=== PATIENT | female | born 1945 | race Caucasian/White ===

== ENCOUNTER → 2018-06-17 18:31 | Outpatient (REF) | payer OTHER, MEDICARE, SELFPAY | LOC: LBN 18:31 | PROVIDERS: PCP Internal Medicine; Visit Provider Nurse Practitioner | DX: R30.0 Dysuria (principal) | CPT/HCPCS: 87077; 87086; 87186 ==

== ENCOUNTER 2018-06-25 00:10 | Outpatient (CLI) | payer OTHER, MEDICARE, SELFPAY ==
--- NOTE | 2018-06-25 10:38 | DI.MAMMO_ITS ---
SYMPTOMS/DIAGNOSIS: SCREENING, Z12.31 MAMMOGRAM: The breasts are of moderate density with fairly symmetrical distribution of fibroglandular tissue. No dominant mass or clumped microcalcification is identified in either breast. The current examination is compared with previous examinations including May 2016 and there has been no gross interval change in appearance in comparison with the previous studies. Note is again made of biopsy clip in the upper outer quadrant of the left breast. CONCLUSION: No specific evidence of malignancy at this time. Routine screening examinations are suggested at yearly intervals in this age group according to the ACS/ACR guidelines. Category I. Breast density Category B. MQSA ASSESSMENT OF FINDINGS: Negative. Category 1. Patient will receive a letter notifying them of these results. BI-RADS category B. There are scattered areas of fibroglandular density.
== END 2018-06-25 00:30 ==
PROVIDERS: PCP Internal Medicine; Visit Provider Internal Medicine
DX: Z12.31 Encounter for screening mammogram for malignant neoplasm of breast (principal)
CPT/HCPCS: 77063; 77067

== ENCOUNTER 2018-08-30 09:43 | Outpatient (CLI) | payer OTHER, MEDICARE, SELFPAY ==
[2018-08-30 11:35] LABS: Anion Gap 7.3 mmol/L (3-11); BUN 23 mg/dL (7-18); CO2 31.7 mmol/L (21.0-32.0); CREATININE 1.52 mg/dL (0.55-1.02); Calcium 9.1 mg/dL (8.5-10.1); Chloride 103 mmol/L (98-107); Cholesterol 207 mg/dL (50-200); Estimated GFR 33.52 (mL/min/1.73m2); Glucose 130 mg/dL (70-100); HDL Cholesterol 57 mg/dL (40-60); LDL CHOLESTEROL 132 mg/dL (<100); Potassium 4.4 mmol/L (3.5-5.1); Sodium 142 mmol/L (136-145); TSH 1.65 uIU/mL (0.358-3.74); Triglyceride 129 mg/dL (30-150)
== END 2018-08-30 10:03 ==
PROVIDERS: PCP Internal Medicine; Visit Provider Internal Medicine
DX: E03.9 Hypothyroidism, unspecified (principal); N25.9 Disorder resulting from impaired renal tubular function, unspecified; I10 Essential (primary) hypertension
CPT/HCPCS: 36415; 80048; 80061; 83721; 84443

== ENCOUNTER 2018-10-09 14:50 | Outpatient (CLI) | payer OTHER, MEDICARE, SELFPAY ==
--- NOTE | 2018-10-09 14:30 | DI.RAD_ITS ---
SYMPTOMS/DIAGNOSIS: PAIN RIGHT HIP AND PELVIS: The bony structures are normally mineralized. The hip joint is well maintained with minimal periarticular spurring. There is no evidence of a fracture or dislocation. The pelvic bones appear intact and in the frontal plane, a left hip prosthesis is demonstrated and appears unchanged in position when compared with previous images of 09/05/2016 with no evidence of a superimposed fracture or dislocation. Note is made of degenerative changes involving the lower lumbar spine where elbert and pedicle screw devices are noted and there is evidence of an L4-5, L5-S1 fusion. SUMMARY: No significant abnormality involving the right hip is apparent.
== END 2018-10-09 15:10 ==
PROVIDERS: PCP Internal Medicine; Visit Provider Internal Medicine
DX: M25.551 Pain in right hip (principal); Z96.642 Presence of left artificial hip joint
CPT/HCPCS: 73502

== ENCOUNTER → 2018-10-28 11:23 | Outpatient (BNVA) | payer MEDICARE, OTHER, SELFPAY | PROVIDERS: PCP Internal Medicine; Referring Provider Internal Medicine; Visit Provider Orthopaedic Surgery | DX: M25.551 Pain in right hip (principal) | CPT/HCPCS: 99213; 99241 ==

== ENCOUNTER 2018-12-24 11:29 | Outpatient (CLI) | payer MEDICARE, OTHER, SELFPAY ==
--- NOTE | 2018-12-24 06:00 | DI.RAD_ITS ---
SYMPTOM/DIAGNOSIS: LUMBAR RADICULOPATHY, TRANSFORAMINAL EPIDURAL STEROID INJECTION C-ARM: Fluoroscopy Time: 46.6 seconds 19.20mGy Fluoroscopy was provided for guidance with lumbar spine pain clinic injection. Please see procedure note for details.
[2018-12-24 11:40] VITALS: BP 115/75; PULSE 63; RESP 18; TEMP 37.1; O2SAT 97
--- NOTE | 2018-12-24 12:11 | PDOC.PAIN ---
Pain Clinic Procedure Note Current Active Problems Problem Status Onset Lumbar radiculitis Acute LUMBAR / SACRAL TRANSFORAMINAL INJECTION ITALO GRANGER has been referred [facility] for a transforaminal nerve root block and steroid injection. COMMENTS: Previously evaluated in the clinic and had an MRI of the lumbar spine. Her symptoms are consistent with a right L1 radiculopathy. Patient was interviewed and the medical record reviewed. There were no medical, pharmacologic, radiographic or other structural contraindications to attempting fluoroscopically guided transforaminal nerve root block and epidural steroid injection. Risks and expected side effects as well as potential benefit of the procedure were reviewed and voiced concerns addressed. The printed consent form was signed and witnessed. Standard time-out procedure was performed. Patient was placed in the prone position on the fluoroscopy table and automated blood pressure cuff and pulse oximeter applied. Fluoroscopy was utilized to identify the right L1 neural foramen between L1 and L2. A skin sandhya was made for the needle insertion site. A Chlorhexadine prep was carried out, and sterile drapes were applied. Local anesthesia was achieved in the skin and subcutaneous tissues. A 22 gauge curved tip spinal needle was then inserted, advanced with fluoroscopic guidance into the neural foramen, confirmed on the lateral view. After negative aspiration, 2 ml of Omnipaque 240 was injected confirming position in A/P and lateral views. This showed a good spread of dye transforaminally into the epidural space. There was no vascular update with contrast injection under continuous fluoroscopy and digital substraction. 15 mg of Dexamethasone was injected, followed by 0.5 ml of 1% Xylocaine flush for the nerve root block, as well. There was no unusual discomfort expressed.The needle was withdrawn. The patient tolerated the procedure well. A Band-Aid was applied. Vital signs were stable throughout the procedure and were as recorded in nursing records. If given, dosages of intravenous drugs for anxiolysis and analgesia were documented in nursing records. Follow up plans and appointments were discussed. Post procedure instruction was given as documented in nursing records and patient was discharged in the care of an identified special events driver. COMMENTS: This procedure can be completed up to 3 times per 12 months if it is effective. CC: Roberta Lyons MD
[2018-12-24 12:20] VITALS: PULSE 64; RESP 18; O2SAT 99
[2018-12-24] MEDS: Omnipaque 240 MG/ML 50 ML BTL IJ (12:21)
[2018-12-24] MEDS: Dexamethasone Sod. Phos./Pres-Free 10 MG/ML VIAL IJ (12:21)
== END 2018-12-24 11:49 ==
PROVIDERS: PCP Internal Medicine; Visit Provider Preventive Medicine Occupational Medicine
DX: M54.16 Radiculopathy, lumbar region (principal)
CPT/HCPCS: 64483; 72100; Q9967

== ENCOUNTER → 2018-12-27 08:51 | Outpatient (BNVA) | payer MEDICARE, OTHER, SELFPAY | PROVIDERS: PCP Internal Medicine; Referring Provider Internal Medicine; Visit Provider Student in an Organized Health Care Education/Training Program | DX: M25.551 Pain in right hip (principal); Z96.642 Presence of left artificial hip joint | CPT/HCPCS: 99203; 99214 ==

== ENCOUNTER 2019-01-02 01:19 | Outpatient (CLI) | payer MEDICARE, OTHER, SELFPAY ==
--- NOTE | 2019-01-02 07:00 | DI.RAD_ITS ---
SYMPTOM/DIAGNOSIS: RT HIP INJECTION, RT HIP PAIN, M25.551 RIGHT HIP INJECTION: Fluoroscopy Time: 9.8 seconds Fluoroscopy was utilized by Dr. Gold during the performance of a right hip injection. Please refer to the procedure report for complete details.
--- NOTE | 2019-01-02 10:03 | W.PROCNOTE ---
Date of service: 01/02/19 Time of Service: 10:03 Procedure Note Date of procedure: 01/02/19 Procedure: Right Hip Injection with Fluoroscopic Guidance Surgeon/Proceduralist/Physician: Rinku Gold Procedure Diagnosis: Right Hip Osteoarthritis Procedure Indications: Alejandra has had persistent pain of the RIGHT hip and groin. Noninvasive measures have been tried. To serve as both diagnostic and therapeutic, an injection under fluoroscopy was recommended. I had discussed the risks of the procedure and the patient elected to proceed. Procedure Description: Alejandra was greeted in the flouroscopy room. The correct side was identified and the consent was reviewed with the patient and signed. The patient was then placed in the supine position on the fluoroscopy table. The RIGHT hip was then prepped with Chloraprep. The anterolateral injection starting point was identiifed by bony landmarks and fluoroscopy. The skin and soft tissue in the tract of the injection was anesthetized with 1% Lidocaine. A spinal needle was then inserted deep into the hip joint at the level of the lateral femoral neck under fluoroscopic guidance. A small amount of Omnipaque solution was injected to confirm intraarticular placement. Once confirmed, the hip was injected with 6cc of 0.5% Bupivicaine and 80mg of Depo-Medrol. A bandaid was placed on the injection site. The patient tolerated the procedure well and noted improvement in pre-injection pain.
[2019-01-02] MEDS: Omnipaque 300 MG/ML 10 ML BTL IJ (11:28)
[2019-01-02] MEDS: Bupivacaine 0.5% Pres-Free 10 ML VIAL 6 ML IJ (11:29)
[2019-01-02] MEDS: methylPREDNISolone ACETATE 80 MG/ML VIAL IM (12:04)
== END 2019-01-02 01:39 ==
PROVIDERS: PCP Internal Medicine; Visit Provider Student in an Organized Health Care Education/Training Program
DX: M25.551 Pain in right hip (principal); M16.11 Unilateral primary osteoarthritis, right hip
CPT/HCPCS: 20610; 77002; J1040

== ENCOUNTER 2019-01-15 11:16 | Outpatient (CLI) | payer MEDICARE, OTHER, SELFPAY ==
--- NOTE | 2019-01-15 11:11 | DI.RAD_ITS ---
SYMPTOMS/DIAGNOSIS: RAZA PLANNING RIGHT HIP: Comparison is made with [id number]. There is now narrowing of the right hip joint space, worsening when compared with the previous exam. There is mild acetabular spurring. Mild spurring is seen the SI joint. IMPRESSION: Moderate degenerative changes of the right hip.
== END 2019-01-15 11:36 ==
PROVIDERS: PCP Internal Medicine; Referring Provider Internal Medicine; Visit Provider Student in an Organized Health Care Education/Training Program
DX: M25.551 Pain in right hip (principal); M16.11 Unilateral primary osteoarthritis, right hip; Z98.890 Other specified postprocedural states
CPT/HCPCS: 99213; 99214; 73501

== ENCOUNTER 2019-01-31 08:53 | Outpatient (CLI) | payer MEDICARE, OTHER, SELFPAY ==
[2019-01-31 10:31] LABS: HCT 40.9 % (36.0-46.0); HGB 13.6 g/dL (12.0-15.5); Mean Corp. HGB Concentration 33.3 g/dL (32.0-36.0); Mean Corpuscular Hemoglobin 31.1 pg (27.0-33.0); Mean Corpuscular Volume 93.4 fL (80-95); Mean Platelet Volume 9.6 fL (8.0-11.0); Platelet Count 241 x1000/uL (130-400); RBC 4.38 m/cumm (4.00-5.20); RBC Distribution Width 13.7 % (11.7-14.6); White Blood Cell Count 6.75 k/cumm (4.4-10.8)
[2019-01-31 11:18] LABS: Anion Gap 6.7 mmol/L (3-11); BUN 18 mg/dL (7-18); CO2 31.3 mmol/L (21.0-32.0); CREATININE 1.26 mg/dL (0.55-1.02); Calcium 9.6 mg/dL (8.5-10.1); Chloride 103 mmol/L (98-107); Cholesterol 149 mg/dL (50-200); Estimated GFR 41.51 (mL/min/1.73m2); Glucose 147 mg/dL (70-100); HDL Cholesterol 69 mg/dL (40-60); LDL CHOLESTEROL 60 mg/dL (<100); Potassium 4.7 mmol/L (3.5-5.1); Sodium 141 mmol/L (136-145); TSH 1.75 uIU/mL (0.358-3.74); Triglyceride 77 mg/dL (30-150)
== END 2019-01-31 09:13 ==
PROVIDERS: PCP Internal Medicine; Visit Provider Student in an Organized Health Care Education/Training Program
DX: M25.551 Pain in right hip (principal); M16.0 Bilateral primary osteoarthritis of hip; E03.9 Hypothyroidism, unspecified; R73.01 Impaired fasting glucose; E11.9 Type 2 diabetes mellitus without complications; Z01.818 Encounter for other preprocedural examination
CPT/HCPCS: 36415; 80048; 80061; 83721; 85027; 86850; 86900; 86901; 84443

== ENCOUNTER 2019-02-06 05:55 | Inpatient (IN) | payer MEDICARE, OTHER, SELFPAY ==
[2019-02-06] VITALS (18 sets, daily range): BP systolic 87–126; BP diastolic 43–95; PULSE 68–81; RESP 10–20; TEMP 35.6–36.8; O2SAT 94–98
[2019-02-06] MEDS: Celecoxib 200 MG CAP 400 MG PO (06:47)
[2019-02-06] MEDS: Acetaminophen 500 MG TAB 1000 MG PO (06:47)
[2019-02-06] MEDS: Lactated Ringers 1,000 ML 80 ML IV ×3 (06:48→13:04)
[2019-02-06] MEDS: oxyCODONE-CR 10 MG TABCR PO (06:48)
[2019-02-06] MEDS: ceFAZolin 2 GM/50 ML BAG IVPB (07:45)
[2019-02-06] MEDS: Bupivacaine 0.25% Pres-Free 30 ML VIAL (10:24)
[2019-02-06] MEDS: Ketorolac 30 MG/ML VIAL (10:24)
[2019-02-06] MEDS: Normal Saline 50 ML (10:24)
--- NOTE | 2019-02-06 10:25 | DI.RAD_ITS ---
SYMPTOM/DIAGNOSIS: DJD RT HIP, TOTAL RT HIP C-ARM RIGHT HIP IN OR: Fluoroscopy Time: 50.3 seconds C-arm fluoroscopy was utilized by Dr. Gold during placement of right hip prosthesis. Hard copy shows acetabular and femoral components in place with a cerclage wire around the proximal femoral metaphysis.
--- NOTE | 2019-02-06 11:38 | DI.RAD_ITS ---
SYMPTOMS/DIAGNOSIS: S/P RT RAZA WITH INTRAOP FRX AP PELVIS: AP view of the pelvis was obtained and shows previously noted total left hip joint replacement in position with a right hip joint replacement now also in position as well. There are bilateral proximal femoral cerclage wires.
[2019-02-06] MEDS: Lactated Ringers 1,000 ML 75 ML IV (12:18)
[2019-02-06] MEDS: Normal Saline Flush 10 ML SYR IV (14:56)
--- NOTE | 2019-02-06 15:47 | IN_ITS ---
Date of service: 02/06/19 Time of Service: 13:40 PT Notes Inpatient Physical Therapy Evaluation Date: 02/06/19 Referring Doctor: Dr. Gold PT Orders: PT CONSULT: s/p right anterior RAZA Precautions: fall, standard, WBAT Patient Profile/Admitting Diagnosis: Patient admitted s/p right anterior RAZA performed earlier today. PMHX: H/O radioactive iodine thyroid ablation (Acute) S/P laminectomy (Acute ~2006) S/P tonsillectomy and adenoidectomy (Acute) S/P total abdominal hysterectomy and bilateral salpingo-oophorectomy (Acute) Status post Eboni fundoplication (Acute) Status post carpal tunnel release of both wrists (Acute) Status post right rotator cuff repair (Acute ~1993) History of appendectomy (Chronic) History of cataract surgery (Chronic) History of cholecystectomy (Chronic) History of knee replacement (Chronic) Aborted Manohar-en-Y Bypass (03/11/15) Colonoscopy - IV Sedation (~06/2014) Lap Take down Eboni (03/11/15) Lysis of adhesions (03/11/15) Paraesophagel Hernia repair (03/11/15) Posterior crura-plasty, gastropexy, intra-op EGD (03/11/15) Total replacement of hip (~2010) liposuction (~2016) panniculectomy (~2016) Social History/Home Situation: Patient lives with her supportive in a split level home. They have 7 outdoor steps (no rail) and 5 indoor steps with single rail to reach the main level of the home. Equipment Owned/DME: [employer]YA[employer], scott Subjective: Patient states that she is feeling great. She has some medial knee pain, which has been bothering her for several weeks. She states that her hip feels great and she's anxious to start walking. Objective: General Observation: Resting in bed with IV in LUE, Abreu catheter in place. Mental Status: A and O x3 Pain: 1/10, medial aspect of right knee Vital Signs: BP 114/73 at rest ROM: Right Upper Extremity: WFL Left Upper Extremity: WFL Right Lower Extremity: Hip range of motion not assessed due to acute postoperative status. Right knee range of motion allows 0 degrees extension to at least 100 degrees of flexion Left Lower Extremity: WFL Strength: Right Upper Extremity: WFL Left Upper Extremity: WFL Right Lower Extremity: Functionally, patient is able to perform active heel slides, long arc quads, and demonstrate good quadriceps activation with quad sets. No resisted strength assessment was performed due to acute postoperative status. Ankle dorsiflexion at least 3/5. Left Lower Extremity: Hip flexion 4+/5. Quads 5/5. Ankle dorsiflexion 5/5 Sensation: Intact distally Bed Mobility/Transfers: Supine?sit: Supervision Sit?supine: Supervision Sit?stand: Supervision Stand?sit: Supervision with max cues for hand placement and technique Gait: During first attempt ambulation, patient takes 2 steps only, with weightbearing as tolerated, upper extremity support to FW W, and mod assist of 1. On second step her right lower extremity tera, and she reports sharp pain in her right knee. She was assisted to chair, where she reports complete resolution of right knee pain. She remains sitting up to chair for 60 minutes, after which she performed a second round of ambulation. At that point she is able to ambulate 30 feet x1, with cues for increased reliance on upper extremity support to wheeled walker and reduce weightbearing to right lower extremity (approximately 50% weightbearing), and CG x2. Patient is able to ambulate with 0/10 pain, step through gait pattern, and no further episodes of buckling. She requires max cues for pacing and technique. Balance: Static Sitting: Normal Dynamic Sitting: Good Static Standing: Good Dynamic Standing: Fair Special Tests: Mobility Limitations Standardized Measure [facility] AM-PAC 6 clicks Basic Mobility Inpatient Short Form: Raw Score: 18 CMS Score: 47% deficit Informed Consent/Education: Patient instructed in purpose of PT consult and plan of care. She was instructed in gait and transfer training, with patient requiring significant cues for slowing pace. She was instructed in an early exercise program, as noted on flowsheet. Assessment: Patient is a 73 year old female referred to physical therapy services with the diagnosis of right hip OA, postop day 0 from right anterior RAZA. Patient presents with clinical signs and symptoms consistent with acute postoperative status, as demonstrated by the following impairment level findings: 1. Decreased right lower extremity strength 2. Gait impairments Impairments are contributing to the following functional limitations: 1. Unable to tolerate household distance ambulation 2. Unable to manage stairs 3. Patient requiring cues for safety and technique for all transfers and mobility Patient is assessed as Moderate [id number] complexity based on the following: History: 73-year-old female, postop day 0 from right anterior RAZA. Patient has an extensive PMH, including multiple musculoskeletal issues. She is anxious to return home as quickly as possible, although demonstrated safety concerns with transfers and ambulation during evaluation today. Examination: Functional limitations as noted above Presentation: Evolving Decision Making: Moderate complexity Goals: Goals X1 week 1. Supine-Sit: Supervision 2. Sit-Supine : Supervision 3. Sit-Stand : Supervision 4. Stand-Sit : Supervision 5. Bed-Chair : Supervision with FW W 6. Chair-Bed: Supervision with FWW 7. Gait : supervision with FWW x 50' 8. Stairs : Supervision with single rail x 5 9. Independent with home exercise program Plan of Care/Treatment Plan: 1-2x/day, 7 days/week x 1 week. Plan of care has been reviewed with the [employer]INEER providing the service under Physical Therapy direction. Initiate Physical Therapy intervention for strengthening, bed mobility, transfers, gait, stairs, balance training, use of assistive device. DISCHARGE RECOMMENDATIONS: home with no anticipated equipment needs TREATMENT CODE/TIME: 98978, [id number] (1:40 PM to 2:10 PM; 3:15 PM to 3:35 PM) Delisa Hernandez, PT, DPT [facility]
--- NOTE | 2019-02-06 16:34 | W.PM.OP ---
Date of service: 02/06/19 Time of Service: 11:35 Operative Note DATE OF PROCEDURE: 02/06/19 PRE-OP DIAGNOSIS: Right Hip Osteoarthritis POST-OP DIAGNOSIS: same PROCEDURE: Right Anterior Total Hip Arthroplasty with intraoperative fracture fixation using a cerclage cable SURGEON: Rinku Gold COOK AT SCHOOL: [employer] ANESTHESIA: spinal ESTIMATED BLOOD LOSS: 400 PATHOLOGY: none sent COMPLICATIONS: Other (There is a fracture noticed over the most medial aspect of the proximal femur. It was noted during the planing process and as the planing continued this piece fractured completely. It was V-shaped and extended towards the bottom of the lesser trochanter. There is no distal propagation. It was.) Patient was transported to: PACU Patient's condition: stable Implants: 1. Depuy [place] Acetabular Component, 48 mm 2. Depuy Acetabular Liner, 48x32 mm 3. Depuy Corail standard Collared femoral Stem, Size 11 4. Depuy Altrx Ceramic Femoral Head, Size 32+1 mm Indications: I have seen Alejandra in clinic for symptoms of hip arthritis, confirmed with radiographic findings. Alejandra has exhausted nonoperative methods and was having significant limitations in daily function and desired better function and less pain. I discussed the technical details of a hip replacement. I explained the risks of the procedure to include, but not limited to, bleeding, infection, pain, stiffness, fracture, damage to nerves and vessels, damage to muscles and tendons, loosening, instability, leg length inequality, need for repeat procedure, blood clot and cardiopulmonary demise. Despite these risks, Alejandra elected to proceed. Findings: There was significant signs of arthritis throughout the hip. The entire superior weightbearing portion of the femoral head had no cartilage. The approach to the hip was quite challenging given the depth down to the deep thigh fascia. Most of her instruments were close to help out. During the broaching and planning process of the proximal femur there was a crack noticed. This piece broke and had to be fixed with a cerclage cable. The final implant set very nicely within the bone with a good fit and without further displacement of the intraoperative fractured piece. Procedure Description: Alejandra was greeted in the preoperative holding area where the correct side was identified and marked. The consent was reviewed with the patient and signed. The history and physical was updated. All questions were answered. Alejandra was taken back to the operating room. A spinal anesthestic was then administered. The patient was placed into the supine position on the operating room table. The patient was then positioned onto the ARCH table. Both feet were wrapped with [place] cotton wrap along with Coban. The feet were placed in specialized boots for the ARCH table, well seated within the boot and secured. SCDs were applied. The patient was then slid down onto a peroneal post and the nonoperative leg was secured in a leg perez attached to the table. The operative side was placed into the ARCH table attachment and bed height and positioning was secured. A preoperative AP pelvis was obtained to serve as a reference for determining leg lengths. Prophylactic antibiotics in the form of cefazolin were administered. 1g of Tranxemic Acid was given intravenously within 30 minutes of incision. The right leg was then prepped with Chloraprep and draped in a standard fashion with a large shower-curtain type drape with Iodine impregnated skin protection. A timeout to confirm correct identity, side and site, procedure, allergies, anesthesia, and medical concerns was performed. An obliquely oriented incision was made starting lateral to the ASIS and running distal over the Tensor Fascia Ursula (TFL) muscle belly toward the fibular head, approximately 10cm. The skin and soft tissue was dissected sharply, through Yuval?s fascia, and to the fascia of the TFL. The approach was quite deep. While she did not have a large pannus, the fat over the anterior lateral thigh was more than I have encountered in the past. Our typical retractors did not provide enough exposure deep requiring the use of accessory retractors. With the fascia and superior border of the IT band identified, the fascia was incised with a new knife just above any perforators from the IT band. The TFL muscle belly was bluntly dissected away from the fascia and moved laterally. The fat between TFL and rectus was identified to ensure the dissection was not within the TFL. Blunt dissection created space between abductors and the capsule and retractor was placed over the lateral femoral neck. The fibers of the rectus femoris tendon were identified and these were freed from the anterior capsule. A second cobra retractor was placed around the medial femoral neck. The TFL was further retracted laterally to show the deep fascia. This again was challenging given the amount of fat between the anterior thigh fashion the skin. Careful dissection through this layer identified three main crossing vessels of the lateral femoral circumflex. These were cauterized in multiple locations and then cut without any noticeable bleeding. The TFL was further released bluntly from the deep fascia to expose anterior hip capsule and fat the Liam orthopaedic retractor was then placed beneath the TFL and against sartorius and medial soft tissues to protect and retract the soft tissues. A T-capsulotomy was then performed starting at the superior lateral acetabulum and moving distally to the intertrochanteric ridge. These capsular flaps were tagged with a No. 1 Ethibond and elevated from within. The capsular flaps were released to the shoulder of the lateral neck and to the lesser trochanter to give excellent visualization of the proximal femur. A neck osteotomy was performed using an oscillating saw based on preoperative templates. This cut started in the shoulder and of the lateral neck and exited medially. The saw was at all times directed medially to avoid injury to the greater trochanter. 6cm of traction was applied to the leg and the osteotomy opened. The femoral head was removed with a corkscrew, making sure to protect the TFL on its exit. There was notable chondromalacia over the superior weightbearing portion of the femoral head. This was measured on the back table to determing the starting reamer size. Portions of the rectus obscuring visualization were minimally elevated off the superior acetabulum. An anterior retractor was placed over the anterior wall between capsule and labrum. A posterior retractor was placed similarly. This provided excellent visualization. The contents of the cotyloid fossa were removed with electrocautery and the labrum was removed with a knife. Acetabular reaming began with a 43 mm reamer. This first reaming was directed anterior to posterior and medial to get down to the true floor. This was inspected and reamed until the true floor was reached. I then reamed sequentially up to a 47 mm reamer where good fit was obtained. The larger reamers were oriented based on anatomical reference of the anterior and lateral taylor to ensure proper abduction and anteversion. Positioning and size was confirmed with the fluoroscopy. A 48 mm Depuy [place] acetabular component was selected. The acetabulum was reamed around the periphery with the selected acetabular size to prevent a rim fit. The deep tissues were irrigated. The acetabular component was then impacted in a position of about 40-45 degrees of abduction and 15-20 degrees of anteversion, using the patient?s anatomy as the ultimate landmark. Fluoroscopy was used to confirm this. There was excellent code number stamper of the acetabular component and the inserting handle was removed. A primary acetabular screw was placed into the ilium by drilling through one of the holes in the acetabular component. This was measured and an approrpriately sized screw was placed with excellent purchase. It was checked not to be proud. The acetabular liner, Depuy 48x32 mm polyethylene liner, was inserted and lined up with the tines of the acetabular component. There was no soft tissue interposition. The liner was then impacted into position and confirmed to be well-seated. A portion of the betty-articular cocktail was then injected around the acetabulum into the capsule and periosteum. This cocktail consisted of 50cc of 0.25% Bupivicaine and 20cc of Exparel, expanded to a total of 120cc. Traction was released from the femur. The leg was rotated to 120 degrees. Any remaining medial capsule was released until the lesser trochanter was easily palpable. A Quintanilla retractor was placed medially. The lateral capsule was further released into the shoulder to allow access to the greater trochanter. A Quintanilla retractor was placed over the greater trochanter which allowed the trochanter to flip in front of the capsule for excellent exposure. The leg was brought down into maximal extension and 20 degrees of adduction while ensuring there was no impingement on the acetabulum. Any remnant capsule within the trochanter was released. Piriformis and obturator externis were identified and protected. There was excellent access to the proximal femur. The lateral neck remnant was removed with a rongeur. A blunt canal probe was used to identify the canal and trajectory for later broaching. A box osteotome initiated the broach course. A small curved rasp and a curved curette were used to work laterally. Broaching then began with a size 8 [place] broach. This was inserted manually around the trochanter and into the canal before mallet blows. The broach was seated to a few millimeters below the cut level based on the neck cut and the preoperative template. Sequential broaching was continued until a tight fit was obtained with good rotational control of the femur. The broach handle was removed there is noted to be a small line seen in the medial calcar. I was unable to place a [place] and I was unable distracted and unable to separate it. Therefore I did not place any cable. I began planning the proximal femur and during the planning process this medial portion of the calcar broke completely. It was a V-shaped fracture approximately 1 cm in width by about 1-1/2-2 cm in length ending just anterior to the lesser trochanter. There was no propagation of the fracture appreciated. The soft tissue was dissected off of this area to expose it completely to make sure there is no distal femur fracture. At this time the broach handle was reattached and the broach was removed. The fracture fragment was reduced into its bed and a cerclage cable system was opened. A single cerclage wire was then placed around the proximal femur just above the lesser trochanter crossing directly onto the fracture piece. The Socrates segment was placed on the fracture piece that could have code number stamper and hold it in place without it slipping under the cable. This was reduced and tensioned and then held with the clamp system prior to crimping. The size 11 broach was then reinserted and was malleted in position. There is some minor change in the position of the fracture but it held otherwise well. A trial standard neck was inserted along with a +1 trial head. The leg was brought out of extension and adduction and then reduced with traction and internal rotation. The leg was stable anteriorly in a position of 30 degrees of extension and 90 degrees of external rotation. Fluoroscopy was used to ensure there was no fracture and the stem was seated well. Leg lengths were checked with an AP pelvis and pelvic reference points. It was very difficult to appreciate leg lengths given the deformity of the left side and the cable around the right side. My neck cut still seen to be slightly high in my cup position was about where I had templated. Based on the x-ray I may be a few millimeters long. We therefore brought the leg back into a position of external rotation, extension, and adduction. I was very nervous about continuing with the planning. However, I did work him seeking the broach another few millimeters emplaning down. The fracture fragment did not move. However, I was starting to encroach upon where the position of the cerclage cable was and I did not want to run into the cerclage cable with the planar. Therefore, I did stop leaving the neck cut level slightly higher than I desired. The size 11 broach was placed right back into the proximal femur and brought down onto the cut surface. This had excellent rotational control. The +1 head was placed and reduction was performed. Leg lengths were checked again. Again, the x-ray was difficult to interpret but seem to be of the appropriate length, possibly slightly long. The hip was stable and it reduced at 2 cm of traction. Once content with the desired offset and leg lengths, the leg was brought back into extension, external rotation and adduction. The periosteum and surrounding tissue was injected with remaining portion of the betty-articular cocktail. The proximal femur was irrigated as well as the deep tissues. The Depuy [place] standard collared stem, size 11, was then manually inserted into the proximal femur making sure to control rotation. It was then malleted into position with light blows, giving breaks to allow bone expansion and decrease risk of fracture. The selected Depuy Altrx Ceramic Head, size 32+1 mm, was then placed onto the clean and dry trunnion and secured with impaction onto the tapered fit. The leg was brought back out of extension and adduction and reduced with traction and internal rotation. Stability was confirmed with no shuck at 90 degrees of external rotation and 30 degrees of extension. No impingement through range of motion arc. Final x-ray images were obtained with fluoroscopy to confirm adequate positioning. Components appear well seated. The fracture fragments difficult to appreciate in the cable was in a good position. The deep tissues were thoroughly irrigated with a pulse lavage. The second dose of TXA 1g was administered intravenously. The TFL fascia was finally closed with a No. 2 Stratafix, barbed suture. Deep tissues were then reapproximated with 0 Vicryl and a running 2-0 Vicryl. The skin was closed with a running 4-0 Monocryl in a subcuticular fashion. This was reinforced with skin glue. A Mepilex silver dressing was applied. At the end of the case, all counts were correct. Alejandra was transferred to the hospital bed without difficulty. Once in the PACU and awake, I discussed this complication with Alejandra and her , [place]. I will make her ambulate with a walker at all times for the next 6 weeks. She should offload the leg as needed for comfort but is otherwise weightbearing as tolerated. The fragment was relatively small and would not likely allow the femoral component to subside, but it is possible. She understands this risk and all of her questions were answered. Alejandra has a good prognosis. Physical therapy will start today and without restrictions, weight-bearing as tolerated. Aspirin 81mg BID will be used for DVT prophylaxis.
[2019-02-06] MEDS: Celecoxib 100 MG CAP 200 MG PO (19:45)
[2019-02-06] MEDS: Aspirin E.C. 81 MG TABEC PO (19:45)
[2019-02-06] MEDS: Melatonin 3 MG TAB 6 MG PO (21:31)
[2019-02-07] MEDS: Lactated Ringers 1,000 ML 80 ML IV (02:19)
[2019-02-07 03:18] VITALS: BP 101/63; PULSE 75; RESP 15; TEMP 36.2; O2SAT 91
[2019-02-07] MEDS: Levothyroxine 100 MCG TAB PO (06:42)
[2019-02-07] MEDS: Esomeprazole 20 MG CAPCR PO (06:42)
[2019-02-07] MEDS: oxyCODONE 5 MG TAB PO (06:47)
[2019-02-07 07:15] VITALS: BP 108/66; PULSE 77; RESP 18; TEMP 36.2; O2SAT 94
--- NOTE | 2019-02-07 08:09 | W.PM.DS.N ---
Date of service: 02/07/19 Time of Service: 08:33 DS: Diagnosis Discharge Diagnosis (1) Degenerative joint disease of right hip: Status: Acute Discharge Plan Disposition Patient Disposition: HOME Condition: Good Discharge Details Reason For Visit: R HIP DJD Admit Date/Time: 02/06/19 05:55 Admit Provider: Rinku Gold Attending Provider: Rinku Gold Primary Care Provider: Roberta Lyons Hospital Course Hospital Course: Alejandra is admitted to the medical surgical floor following her procedure. She did have an intraoperative fracture which was treated with reduction and cerclage cabling. The intraoperative assessment was that the hip implant was stable. Postoperative x-rays also demonstrated the same thing. I did limit her weightbearing for comfort with use of a walker at all times. Abreu catheter was discontinued and she was voiding spontaneously. She tolerated physical therapy well and was able to ambulate with minimal pain. She did not use any significant amount of pain medication. Her vital signs were stable. She was deemed safe for discharge home by physical therapy. Home Meds and New Rx's Prescriptions: New celecoxib 200 mg capsule 200 mg PO BID PRN (Reason: pain) Qty: 60 RF: 1 acetaminophen 500 mg tablet 1,000 mg PO Q8H PRN (Reason: pain) Qty: 90 RF: 3 oxycodone 5 mg tablet 5 mg PO Q4H Qty: 18 RF: 0 Continued melatonin 5 MG tablet 5 mg PO HS RF: 0 Probiotic and Acidophilus 1 EACH capsule 1 ea PO DAILY RF: 0 Varicella-Zoster Ge/As01b/Pf [Shingrix Vial Kit] 50 MCG INJ 50 mcg IM ONCE Qty: 1 RF: 1 albuterol sulfate [Ventolin HFA] 90 mcg/actuation HFA aerosol inhaler 2 inh Inhalation QID PRN (Reason: bronchospasm) Qty: 1 RF: 0 bupropion HCl [Wellbutrin XL] 300 mg tablet extended release 24 hr 300 mg PO QAM Qty: 90 RF: 3 estradiol [Estrace] 0.01 % (0.1 mg/gram) cream See Rx Instructions VG .TIW PRN (Reason: atrophic vaginitis) Qty: 42.5 RF: 5 levothyroxine 100 mcg capsule 100 mcg PO DAILY Qty: 90 RF: 3 lidocaine 5 % adhesive patch,medicated 1 patch Topical DAILY Qty: 90 RF: 3 meclizine 25 mg tablet 25 mg PO DAILY Qty: 300 RF: 3 metoprolol succinate [Toprol XL] 100 mg tablet extended release 24 hr 100 mg PO DAILY Qty: 90 RF: 3 promethazine 25 mg tablet 25 mg PO Q6H PRN (Reason: nausea and vomiting) Qty: 20 RF: 0 atorvastatin 40 mg tablet 40 mg PO DAILY Qty: 90 RF: 3 candesartan 4 mg tablet 4 mg PO DAILY Qty: 90 RF: 0 rizatriptan [Maxalt] 10 mg tablet 10 mg PO DAILY PRN (Reason: migraine headache) Qty: 60 RF: 3 loratadine [Allergy Relief (loratadine)] 10 MG tablet 1 tab PO HS PRNRF: 0 Prilosec OTC 20 mg Tablet,Delayed Release (Dr/Ec) 20 mg PO DAILY RF: 0 escitalopram oxalate [Lexapro] 10 mg tablet 10 mg PO DAILY RF: 0 escitalopram oxalate [Lexapro] 20 mg tablet 20 mg PO DAILY RF: 0 Discharge Instructions Additional Instructions: Dr. Gold?s Total Hip Discharge Instructions Activity: The most important activity is to walk. You should try to take short walks a few times a day. You should use the walker at all times. Take pressure off of your leg as needed for pain control. You will find some stiffness and weakness with hip flexion (lifting your knee). - Outpatient physical therapy can be helpful to help return you to a normal gait and improve your flexibility and strength. This can start around 2 weeks. For some patients, it?s not necessary. Usually this is determined at the time of discharge or at the first post-operative visit. - You should wear the JENNI hose on both legs for 4 weeks. Dressing: Keep the surgical dressing in place for at least one week. After the first week it may be removed and replace with light gauze and tape or nothing. It may get wet after 3 days but avoid soaking the dressing. If it gets wet, just lightly pat dry. It is important to always keep some gauze between skin folds, especially when you are sitting. Spend some time with the wound exposed when you are lying flat as the incision does wrinkle onto itself. Medications: - You should take Tylenol and an anti-inflammatory Celebrex as your primary pain control medications - You have been prescribed a stronger pain medication Oxycodone for breakthrough pain, take as needed as prescribed. - You will be taking Aspirin 81mg twice a day for DVT prevention unless instructed otherwise. - If you have constipation you should take Colace or Miralax (both [id number]). It takes most people 3-4 days to have a bowel movement. Follow-up: 2 weeks Stand Alone Forms: Nursing Discharge Form Referrals: Rinku Gold MD [ [facility] STAFF PHYSICIAN] - Activity:: Activity as Tolerated Equipment/Supplies:: Walker Diet:: As Tolerated DS: Data Vitals/I&O Vitals and I&O: Vital Signs Temperature 36.2 C L 02/07/19 03:18 Temperature Source Tympanic 02/07/19 03:18 Pulse 75 02/07/19 03:18 Pulse Rhythm Regular 02/06/19 20:26 Respiratory Rate 15 02/07/19 03:18 Respiratory Effort Non-Labored 02/06/19 20:26 Respiratory Depth Normal 02/06/19 20:26 Respiratory Pattern Normal 02/06/19 20:26 Blood Pressure 101/63 02/07/19 03:18 Pulse Oximetry 91 L 02/07/19 03:18 Oxygen Delivery Method Room Air 02/07/19 03:18 Oxygen Flow Rate 0 02/07/19 03:18 Pain Level 1 02/06/19 13:45 Intake & Output 02/06/19 02/06/19 02/07/19 11:59 23:59 11:59 Intake Total 1770 / 3006.833 1236.833 / 3006.833 1417.333 / 1417.333 Output Total 450 / 450 600 / 600 Balance 1320 / 2556.833 1236.833 / 2556.833 817.333 / 817.333 Weight 105 kg Intake: IV 1770 / 2646.833 876.833 / 2646.833 1417.333 / 1417.333 Oral 360 / 360 Output: Urine 50 / 50 600 / 600 Estimated Blood Loss 400 / 400 Other: Urine Color Yellow Yellow Yellow Urine Appearance Clear Clear Clear Emesis Description None None PFSH Medical History Diverticulosis (Acute) Internal hemorrhoid (Acute) Post traumatic stress disorder (PTSD) (Acute) Vertigo (Acute) Cataract (Chronic) DJD (degenerative joint disease) (Chronic) Depression (Chronic) GERD (gastroesophageal reflux disease) (Chronic) Glaucoma (Chronic) Hypertension (Chronic) Hyperthyroidism (Chronic) Impaired renal function (Chronic) BENITA (obstructive sleep apnea) (Chronic) Obesity (Chronic) Osteoarthritis (Chronic) H/O radioactive iodine thyroid ablation (Acute) Surgical History S/P laminectomy (Acute ~2006) S/P tonsillectomy and adenoidectomy (Acute) S/P total abdominal hysterectomy and bilateral salpingo-oophorectomy (Acute) Status post Eboni fundoplication (Acute) Status post carpal tunnel release of both wrists (Acute) Status post right rotator cuff repair (Acute ~1993) History of appendectomy (Chronic) History of cataract surgery (Chronic) History of cholecystectomy (Chronic) History of knee replacement (Chronic) Aborted Manohar-en-Y Bypass (03/11/15) Colonoscopy - IV Sedation (~06/2014) Lap Take down Eboni (03/11/15) Lysis of adhesions (03/11/15) Paraesophagel Hernia repair (03/11/15) Posterior crura-plasty, gastropexy, intra-op EGD (03/11/15) Total replacement of hip (~2010) liposuction (~2016) panniculectomy (~2016) Family History Mother No problems noted. 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
--- NOTE | 2019-02-07 08:09 | W.PM.PROGNOT ---
Date of Service Date of service: 02/07/19 Time of Service: 08:09 Assessment and Plan (1) Degenerative joint disease of right hip: Current visit: No Status: Acute Alejandra is a 73-year-old status post anterior right hip replacement via an anterior approach with intraoperative fracture. She is able to ambulate yesterday with no significant pain. She is taking no pain medications. She denies any major issue. She has had some pain in the knee which was slightly worse yesterday which is most likely due to the positioning of the leg during the surgery. I did review the intraoperative fracture and its treatment. We will keep her on a walker for 6 weeks and ask her to modulate her weightbearing for comfort. The fracture positioning and characteristics is unlikely to cause a long-term issue, however, it is possible. Therefore, we will proceed with some caution. If she is able to continue to do well physical therapy she can go home today. Qualifiers: Osteoarthritis type: primary Qualified Code(s): M16.11 - Unilateral primary osteoarthritis, right hip Subjective Interval history since last seen: Alejandra reports be doing well. She denies having any significant pain. She was able to ambulate yesterday without any significant discomfort. She did have an initial episode of some medial knee pain with buckling. She reports having this before surgery as well. However, it did not recur after the first time. She denies any numbness or tingling down the leg on the anterior knee. She is some slight numbness and tingling over the posterior lateral aspect of the right leg. She denies any chest pain or shortness of breath. No lightheadedness. No fevers or chills. Exam Narrative Exam Narrative: Evaluation of the right hip shows a clean dry and intact dressing. There is no surrounding ecchymosis. No surrounding erythema. She tolerates internal and external rotation with the leg in a supine position without any pain. There is some decreased sensation over the posterior aspect of the incision over the lateral thigh. No anterior thigh or knee numbness. She is able to extend and flex the toes as well as dorsiflex and plantarflex the ankle. The foot is warm well perfused. No significant swelling. Objective Objective Clinical Data: Vital Signs Temperature 36.2 C L 02/07/19 03:18 Temperature Source Tympanic 02/07/19 03:18 Pulse 75 02/07/19 03:18 Pulse Rhythm Regular 02/06/19 20:26 Respiratory Rate 15 02/07/19 03:18 Respiratory Effort Non-Labored 02/06/19 20:26 Respiratory Depth Normal 02/06/19 20:26 Respiratory Pattern Normal 02/06/19 20:26 Blood Pressure 101/63 02/07/19 03:18 Pulse Oximetry 91 L 02/07/19 03:18 Oxygen Delivery Method Room Air 02/07/19 03:18 Oxygen Flow Rate 0 02/07/19 03:18 Pain Level 1 02/06/19 13:45 Intake & Output 02/06/19 02/06/19 02/07/19 11:59 23:59 11:59 Intake Total 1770 / 3006.833 1236.833 / 3006.833 1417.333 / 1417.333 Output Total 450 / 450 600 / 600 Balance 1320 / 2556.833 1236.833 / 2556.833 817.333 / 817.333 Weight 105 kg Intake: IV 1770 / 2646.833 876.833 / 2646.833 1417.333 / 1417.333 Oral 360 / 360 Output: Urine 50 / 50 600 / 600 Estimated Blood Loss 400 / 400 Other: Urine Color Yellow Yellow Yellow Urine Appearance Clear Clear Clear Emesis Description None None
[2019-02-07] MEDS: Atorvastatin 40 MG TAB PO (09:10)
[2019-02-07] MEDS: buPROPion-XL 150 MG TABCR 300 MG PO (09:10)
[2019-02-07] MEDS: Celecoxib 100 MG CAP 200 MG PO (09:10)
--- NOTE | 2019-02-07 09:10 | PDOC.CMIN ---
Care Management Initial Assess REASON FOR HOSPITALIZATION:: s/p R RAZA PAST MEDICAL HISTORY/PAST SURGICAL HISTORY:: Medical: H/O radioactive iodine thyroid ablation, HTN, prediabetes, GERD, CKD, vertigo, migraines, depression, hypothyroidism, OA, hearing loss, sleep apnea, diverticulosis, obesity. Surgical: panniculectomy & liposuction, paraesophageal hernia repair, posterior crura-plasty, gastropexy, intra-op EGD, take-down Eboni and lysis of adhesions, appendectomy, T&A, cystocel/rectocel repair, R rotator cuff repair, bilateral carpal tunnel release, bilateral TKA, cholecystectomy, ASHVIN/BSO, L RAZA, laminectomy with elbert replacement. PREVIOUS FUNCTIONAL STATUS/SOCIAL/FAMILY SUPPORTS:: She is 73 yo woman who lives with her Bay in their home in [place]. She has 2 adult children from her first marriage, and a son from current marriage who lives in [place]. She is retired and usually active and independent. Her is also now retired. CURRENT FUNCTIONAL STATUS:: She is up walking in [place] with PT using a walker. Also did a flight of stairs. Is very pleased with her progress today. ADVANCE DIRECTIVES:: Document on file at [facility]. Bay is agent, and son Maykel is alternate. Has patient been provided with information about the portal?: Yes Did the patient sign up for the portal?: No CODE STATUS:: Full Code INSURANCE COVERAGE / FINANCIAL ISSUES:: Medicare. Shey bramblia [place] CURRENT HOME/COMMUNITY SERVICES/EQUIPMENT:: No current services. Has walker, canes and crutches at home. PRIMARY CARE PHYSICIAN:: Roberta Lyons MD. Rinku Gold MD orthopedics POTENTIAL DISCHARGE NEEDS:: Will need follow-up with Dr Gold as directed. Further PT services to be decided at her follow-up visit. She has all necessary equipment. PATIENT/FAMILY EDUCATION NEEDS:: Review d/c instructions re meds and activity levels. Review Ask me Now questions. ANTICIPATED BARRIERS TO DISCHARGE:: none identified TRANSPORTATION:: via car with Bay. PLAN:: d/c home today as per , no services anticipated.
[2019-02-07] MEDS: Escitalopram 10 MG TAB 30 MG PO (09:11)
[2019-02-07] MEDS: Meclizine 25 MG TAB PO (09:11)
[2019-02-07] MEDS: Metoprolol CR 100 MG TABCR PO (09:12)
[2019-02-07] MEDS: Aspirin E.C. 81 MG TABEC PO (09:12)
--- NOTE | 2019-02-07 11:03 | INDS_ITS ---
Date of service: 02/07/19 Time of Service: 09:00 PT Notes Date: 02/07/19 Referring Doctor: Dr. Gold PT Orders: PT CONSULT: s/p right anterior RAZA Precautions: fall, standard, WBAT Treatment Dates: 02/06/19 - 02/07/19 Patient Profile/Admitting Diagnosis: Patient admitted s/p right anterior RAZA performed 02/06/19. She's participated in PT intervention for 2 sessions over the past two days. PMHX: H/O radioactive iodine thyroid ablation (Acute) S/P laminectomy (Acute ~2006) S/P tonsillectomy and adenoidectomy (Acute) S/P total abdominal hysterectomy and bilateral salpingo-oophorectomy (Acute) Status post Eboni fundoplication (Acute) Status post carpal tunnel release of both wrists (Acute) Status post right rotator cuff repair (Acute ~1993) History of appendectomy (Chronic) History of cataract surgery (Chronic) History of cholecystectomy (Chronic) History of knee replacement (Chronic) Aborted Manohar-en-Y Bypass (03/11/15) Colonoscopy - IV Sedation (~06/2014) Lap Take down Eboni (03/11/15) Lysis of adhesions (03/11/15) Paraesophagel Hernia repair (03/11/15) Posterior crura-plasty, gastropexy, intra-op EGD (03/11/15) Total replacement of hip (~2010) liposuction (~2016) panniculectomy (~2016) Social History/Home Situation: Patient lives with her supportive in a split level home. They have 7 outdoor steps (no rail) and 5 indoor steps with single rail to reach the main level of the home. Equipment Owned/DME: FWW, cane Subjective: Patient states that she is feeling great. She rates her pain as 0/10. States that she is hopeful she can return home today. Objective: General Observation: Resting in bed. No lines. Mental Status: A and O x3 Pain: 0/10 ROM: Right Upper Extremity: WFL Left Upper Extremity: WFL Right Lower Extremity: Hip range of motion not assessed due to acute postoperative status. Right knee range of motion allows 0 degrees extension to at least 100 degrees of flexion Left Lower Extremity: WFL Strength: Right Upper Extremity: WFL Left Upper Extremity: WFL Right Lower Extremity: Functionally, patient is able to perform active heel slides, long arc quads, and demonstrate good quadriceps activation with quad sets. No resisted strength assessment was performed due to acute postoperative status. Ankle dorsiflexion at least 3/5. Left Lower Extremity: Hip flexion 4+/5. Quads 5/5. Ankle dorsiflexion 5/5 Sensation: Intact distally Bed Mobility/Transfers: Supine?sit: Independent with HOB flat Sit?supine: Independent Sit?stand: Independent Stand?sit: Independent Gait: Patient ambulates 150' with FWW and supervision only. Stairs: Patient manages therapeutic stairs 4x8, 6x3 with bilat UE support to rail, supervision only. Balance: Static Sitting: Normal Dynamic Sitting:Normal Static Standing: Good Dynamic Standing: Fair Special Tests: Mobility Limitations Standardized Measure [facility]-PAC 6 clicks Basic Mobility Inpatient Short Form: Raw Score: 24 CMS Score: 0% deficit Treatment: Today's session consisted of re-evaluation, followed by gait and stair training. Patient was instructed in a therapeutic exercise program and instructed in home exercises for independent completion (see flowsheet). Assessment: Patient is a 73 year old female referred to physical therapy services with the diagnosis of right hip OA, postop day 1 from right anterior RAZA. Patient has participated in 2 PT sessions and has demonstrated excellent gains in safety and mobility. Her rehab goals have been met and she is appropriate for discharge from PT services in acute care setting. Goals: Goals X1 week 1. Supine-Sit: Supervision (MET) 2. Sit-Supine : Supervision(MET) 3. Sit-Stand : Supervision(MET) 4. Stand-Sit : Supervision(MET) 5. Bed-Chair : Supervision with FW W(MET) 6. Chair-Bed: Supervision with FWW(MET) 7. Gait : supervision with FWW x 50'(MET) 8. Stairs : Supervision with single rail x 5(MET) 9. Independent with home exercise program (MET) Plan of Care/Treatment Plan: Discharge from PT services in acute care setting. DISCHARGE RECOMMENDATIONS: home with no anticipated equipment needs TREATMENT CODE/TIME: [id number], [id number] (9:00 AM to 9:40 AM) Delisa Hernandez, PT, DPT [facility]
[2019-02-07 11:15] VITALS: BP 100/62; PULSE 77; RESP 18; TEMP 36.8; O2SAT 97
--- NOTE | 2019-02-07 14:29 | INITIAL_ITS ---
Care Management Initial Assess REASON FOR HOSPITALIZATION:: s/p R RAZA PAST MEDICAL HISTORY/PAST SURGICAL HISTORY:: Medical: H/O radioactive iodine thyroid ablation, HTN, prediabetes, GERD, CKD, vertigo, migraines, depression, hypothyroidism, OA, hearing loss, sleep apnea, diverticulosis, obesity. Surgical: panniculectomy & liposuction, paraesophageal hernia repair, posterior crura-plasty, gastropexy, intra-op EGD, take-down Eboni and lysis of adhesions, appendectomy, T&A, cystocel/rectocel repair, R rotator cuff repair, bilateral carpal tunnel release, bilateral TKA, cholecystectomy, ASHVIN/BSO, L RAZA, laminectomy with elbert replacement. PREVIOUS FUNCTIONAL STATUS/SOCIAL/FAMILY SUPPORTS:: She is 73 yo woman who lives with her Bay in their home in [place]. She has 2 adult children from her first marriage, and a son from current marriage who lives in [place]. She is retired and usually active and independent. Her is also now retired. CURRENT FUNCTIONAL STATUS:: She is up walking in [place] with PT using a walker. Also did a flight of stairs. Is very pleased with her progress today. ADVANCE DIRECTIVES:: Document on file at [facility]. Bay is agent, and son Maykel is alternate. Has patient been provided with information about the portal?: Yes Did the patient sign up for the portal?: No CODE STATUS:: Full Code INSURANCE COVERAGE / FINANCIAL ISSUES:: Medicare. Shey brambila [place] CURRENT HOME/COMMUNITY SERVICES/EQUIPMENT:: No current services. Has walker, canes and crutches at home. PRIMARY CARE PHYSICIAN:: Roberta Lyons MD. Rinku Gold MD orthopedics POTENTIAL DISCHARGE NEEDS:: Will need follow-up with Dr Gold as directed. F youther PT services to be decided at her follow-up visit. She has all necessary equipment. PATIENT/FAMILY EDUCATION NEEDS:: Review d/c instructions re meds and activity levels. Review Ask me Now questions. ANTICIPATED BARRIERS TO DISCHARGE:: none identified TRANSPORTATION:: via car with Bay. PLAN:: d/c home today as per , no services anticipated.
--- NOTE | 2019-02-07 14:29 | PDOC.CMDIS ---
LACE Index Scoring Tool - Questions: Length of Stay (in days): 2 Acuity (Admit via E.D.?): No E.D. Visits: 0 - Answers: Total Score: 2 Risk of Readmission: Low Risk Care Management Discharge Reason for Hospitalization: s/p R RAZA Discharge Plan: home with , no services anticipated. to transport. Follow-up with Dr Gold as directed. Patient/Family Education Needs: RN to review d/c instructions re meds and activity. Patient able to verbalize reason for hospitalization.
--- NOTE | 2019-02-07 16:55 | CHAPLAIN ---
Alejandra was very pleasant and easily engaged in conversation. She told me she is to Bay [place], who recently retired from [employer]. Alejandra talked about her children and grandchildren and shared some stories about her life growing up in [facility]. She was very complimentary of Dr. Gold. She said had already walked today and done stairs with PT and would be going home today. She was raised Oriental Orthodox, but has some disagreements with the protestant, although she remains prayerful and connected to God, she told me.
== END 2019-02-07 15:45 | disposition home or self-care (01) | DRG 470 ==
LOC: PDS 09:37 → MS 11:18
PROVIDERS: Admitting Provider Student in an Organized Health Care Education/Training Program; PCP Internal Medicine; Visit Provider Student in an Organized Health Care Education/Training Program
PROC: 0SR904A Replacement of Right Hip Joint with Ceramic on Polyethylene Synthetic Substitute, Uncemented, Open Approach (ICD-10-PCS; CPT 27130; principal; 2019-02-06 07:30)
DX: M16.11 Unilateral primary osteoarthritis, right hip (principal); M96.661 Fracture of femur following insertion of orthopedic implant, joint prosthesis, or bone plate, right leg; Z96.641 Presence of right artificial hip joint; Y83.8 Other surgical procedures as the cause of abnormal reaction of the patient, or of later complication, without mention of misadventure at the time of the procedure; Y79.2 Prosthetic and other implants, materials and accessory orthopedic devices associated with adverse incidents; M25.561 Pain in right knee; I10 Essential (primary) hypertension; G47.33 Obstructive sleep apnea (adult) (pediatric); F32.9 Major depressive disorder, single episode, unspecified; E78.5 Hyperlipidemia, unspecified; K21.9 Gastro-esophageal reflux disease without esophagitis
CPT/HCPCS: 27130; 27244; 97110; 97162; 97530; NC; 72170; 73501; J0690; J1100; J1885; J2250; J2405; J3010

== ENCOUNTER 2019-02-20 10:16 | Outpatient (CLI) | payer MEDICARE, OTHER, SELFPAY ==
--- NOTE | 2019-02-20 09:53 | DI.RAD_ITS ---
SYMPTOMS/DIAGNOSIS: RT HIP RAZA RIGHT HIP AND PELVIS: Two views were obtained. There are hip joint replacements in position bilaterally. There are cerclage wires around the intertrochanteric regions of the femurs bilaterally. The components appear well seated. No other significant bony abnormality seen.
== END 2019-02-20 10:36 ==
PROVIDERS: PCP Internal Medicine; Visit Provider Physician Assistant
DX: Z96.643 Presence of artificial hip joint, bilateral (principal); Z47.1 Aftercare following joint replacement surgery; M96.661 Fracture of femur following insertion of orthopedic implant, joint prosthesis, or bone plate, right leg; Y83.8 Other surgical procedures as the cause of abnormal reaction of the patient, or of later complication, without mention of misadventure at the time of the procedure
CPT/HCPCS: 73502

== ENCOUNTER 2019-03-19 11:53 | Outpatient (CLI) | payer MEDICARE, OTHER, SELFPAY ==
--- NOTE | 2019-03-19 11:23 | DI.RAD_ITS ---
SYMPTOMS/DIAGNOSIS: F/U RT RAZA RIGHT HIP: The patient is status post RAZA. The prosthesis in good position, surrounding bone intact.
== END 2019-03-19 12:13 ==
PROVIDERS: PCP Internal Medicine; Referring Provider Internal Medicine; Visit Provider Student in an Organized Health Care Education/Training Program
DX: Z96.641 Presence of right artificial hip joint; Z47.1 Aftercare following joint replacement surgery; M16.11 Unilateral primary osteoarthritis, right hip
CPT/HCPCS: 73502

== ENCOUNTER → 2019-05-14 10:49 | Outpatient (BNVA) | payer MEDICARE, OTHER, SELFPAY | PROVIDERS: PCP Internal Medicine; Referring Provider Internal Medicine; Visit Provider Student in an Organized Health Care Education/Training Program | DX: Z96.641 Presence of right artificial hip joint; Z47.1 Aftercare following joint replacement surgery ==

== ENCOUNTER 2019-12-24 11:20 | Outpatient (CLI) | payer MEDICARE, OTHER, SELFPAY ==
[2019-12-24 12:12] LABS: COMMENT (LAB VIEW ONLY) 222.59 mg/dL; Microalb ug/mg Crea 3.5 ug/mg Cr
[2019-12-24 12:27] LABS: Anion Gap 10.2 mmol/L (3-11); BUN 20 mg/dL (7-18); CO2 27.8 mmol/L (21.0-32.0); CREATININE 1.29 mg/dL (0.55-1.02); Calculated LDL 72 mg/dL (<100); Chloride 103 mmol/L (98-107); Cholesterol 171 mg/dL (<200); Estimated GFR 40.29 (mL/min/1.73m2); Glucose 145 mg/dL (74-106); HDL Cholesterol 81 mg/dL (40-60); Potassium 4.8 mmol/L (3.5-5.1); Sodium 141 mmol/L (136-145); Triglyceride 92 mg/dL (<150)
== END 2019-12-24 11:40 ==
PROVIDERS: PCP Internal Medicine; Visit Provider Internal Medicine
DX: I10 Essential (primary) hypertension (principal); E11.9 Type 2 diabetes mellitus without complications; E78.00 Pure hypercholesterolemia, unspecified
CPT/HCPCS: 36415; 80048; 80061; 82043; 82570

== ENCOUNTER 2019-12-31 14:59 | Outpatient (CLI) | payer MEDICARE, OTHER, SELFPAY ==
--- NOTE | 2019-12-31 14:45 | DI.RAD_ITS ---
EXAM: XR SHOULDER RT COMPLETE 2+V CLINICAL HISTORY: PAIN. TECHNIQUE: 2D digital imaging was performed. COMPARISON: No exams were available for comparison FINDINGS: BONES: No acute fracture is present. No bony destructive lesion is seen. There is spurring at the ti p of the acromion and greater tuberosity. JOINTS: No dislocation present. Degenerative changes are seen at the AC joint. There is mild spurrin g at the glenohumeral joint. SOFT TISSUE: Normal. IMPRESSION: Remb-tn-[id number] degenerative changes.. DATA REPOSITORY: RADIATION DOSE DELIVERED:
== END 2019-12-31 15:19 ==
PROVIDERS: PCP Internal Medicine; Referring Provider Internal Medicine; Visit Provider Student in an Organized Health Care Education/Training Program
DX: M25.511 Pain in right shoulder (principal); M19.011 Primary osteoarthritis, right shoulder; M75.101 Unspecified rotator cuff tear or rupture of right shoulder, not specified as traumatic
CPT/HCPCS: 99204; 99215; 73030

== ENCOUNTER 2020-10-21 01:23 | Outpatient (CLI) | payer MEDICARE, OTHER, SELFPAY ==
--- NOTE | 2020-10-21 10:56 | DI.MAMMO_ITS ---
EXAM: MG MAMMO SCREENING CLINICAL HISTORY: screening,Z12.39. TECHNIQUE: Bilateral full field digital CC and MLO mammographic images were obtained with 3D tomosyn thesis and utilizing computer aided detection (CAD). COMPARISON: Prior mammograms dating back to 2011, the most recent being June 2018. FINDINGS: There are no CAD designations. There are no spiculated masses nor malignant appearing microcalcification groups. No new findings in the immediate vicinity of a biopsy marker clip seen anteriorly in the left breast. There is no signi ficant architectural distortion nor skin thickening-retraction. IMPRESSION: No radiographic evidence of malignancy. BI-RADS Category 1 - Negative Breast Density - Category A - Almost entirely fatty Breast density Category C or D implies that the patient has dense breast tissue. Dense breast tissue can make it harder to find cancer on a mammogram. Dense breast tissue is also associated with an incr eased risk of breast cancer. This information about the result of the mammogram report was provided to the patient to raise their awareness. Use this report when you speak with the patient about their risks for breast cancer, which includes their family history. At that time, you may recommend additional screening tests (Ultrasoun d or MRI) as these tests may add significant information. A negative radiographic report should not delay biopsy if a dominant or clinically suspicious mass is present. Up to ten percent of cancers are not identified on mammography. A negative report may reinforce clinical impression. Adenosis and dense breasts may obscure an underlying neoplasm. False positive reports average 6 to 10%. Patient will receive a letter notifying them of these results.
== END 2020-10-21 01:43 ==
PROVIDERS: PCP Internal Medicine; Visit Provider Internal Medicine
DX: Z12.31 Encounter for screening mammogram for malignant neoplasm of breast (principal)
CPT/HCPCS: 77063; 77067

== ENCOUNTER 2021-01-03 03:16 | Outpatient (CLI) | payer MEDICARE, OTHER, SELFPAY ==
[2021-01-03 08:04] LABS: HCT 44.7 % (36.0-46.0); HGB 14.7 g/dL (11.2-15.7); MCH 30.6 pg (27.0-33.0); MCHC 32.9 % (32.0-36.0); MCV 92.9 fL (80-95); Platelet Count 265 10^3/uL (130-400); RBC 4.81 10^6/uL (3.93-5.22); RDW 13.4 % (11.7-14.6); RDW-SD 46.5 fL; WBC 5.69 10^3/uL (4.4-10.8)
[2021-01-03 08:23] LABS: Microalb ug/mg Crea 4.1 ug/mg Cr
[2021-01-03 09:29] LABS: Iron 47 ug/dL (50-170)
[2021-01-03 09:35] LABS: Anion Gap 9.2 mmol/L (3-11); BUN 17 mg/dL (7-18); CO2 27.8 mmol/L (21.0-32.0); CREATININE 1.3 mg/dL (0.55-1.02); Calcium 9.1 mg/dL (8.5-10.1); Calculated LDL 47 mg/dL (<100); Chloride 104 mmol/L (98-107); Cholesterol 145 mg/dL (<200); Estimated GFR 39.82 (mL/min/1.73m2); Glucose 209 mg/dL (74-106); HDL Cholesterol 75 mg/dL (40-60); Potassium 4.6 mmol/L (3.5-5.1); Sodium 141 mmol/L (136-145); TSH (W/Ref FT4) 1.68 uIU/mL (0.36-3.74); Triglyceride 117 mg/dL (<150)
== END 2021-01-03 03:17 | disposition home or self-care (01) ==
LOC: LBO 03:16
PROVIDERS: PCP Internal Medicine; Visit Provider Internal Medicine
DX: E03.9 Hypothyroidism, unspecified (principal); E11.9 Type 2 diabetes mellitus without complications; E78.5 Hyperlipidemia, unspecified; I10 Essential (primary) hypertension; N19 Unspecified kidney failure; G25.81 Restless legs syndrome; G89.29 Other chronic pain
CPT/HCPCS: 36415; 80048; 80061; 85027; 82043; 82570; 83540; 84443

== ENCOUNTER 2021-04-12 01:44 | Outpatient (CLI) | payer MEDICARE, OTHER, SELFPAY ==
--- NOTE | 2021-04-12 09:30 | DI.DEXA_ITS ---
Exam(s) XR DEXA BONE DENSITY W/WO SCOTTIE EXAM: XR DEXA BONE DENSITY W/WO SCOTTIE CLINICAL HISTORY: Screening for osteoporosis IN POSTMENOPAUSAL WOMAN,Z78.0,ENCOUNTER FOR EXAM TECHNIQUE: DEXA evaluation of the upper lumbar spine, and forearm. There is hardware from fusion s urgery in the lower lumbar spine as well as bilateral hip prostheses.. COMPARISON: Prior DEXA scan performed 2004 FINDINGS: Performed on a [employer] unit. Lateral image: Not performed Lumbar Spine T-score: 2.6 . Prior 2005 reading was 0.8. This difference may be due to differences i n technique due to the fusion hardware. Hip total T-score:Not performed due to bilateral hip prostheses. Forearm total T-score: 0.0 IMPRESSION: Bone mineral density measures in the normal range. Fracture risk is low. Note: Any spine fracture indicates 5x risk for subsequent spine fracture and 2x risk for subsequent h ip fracture. World Health Organization criteria for BMD interpretation classify patients: Normal...... T- Score at or above -1.0 Osteopenic... T- Score between -1.0 and -2.5 Osteoporosis... T-Score at or below -2.5
== END 2021-04-12 02:04 ==
PROVIDERS: PCP Internal Medicine; Visit Provider Internal Medicine
DX: Z00.00 Encounter for general adult medical examination without abnormal findings (principal); Z13.820 Encounter for screening for osteoporosis; Z78.0 Asymptomatic menopausal state
CPT/HCPCS: 77080

== ENCOUNTER 2022-06-12 14:59 | Outpatient (CLI) | payer MEDICARE, OTHER, SELFPAY ==
--- NOTE | 2022-06-12 14:30 | DI.RAD_ITS ---
Exam(s) XR SHOULDER LT COMPLETE 2+V EXAM: XR SHOULDER LT COMPLETE 2+V CLINICAL HISTORY: left shoulder pain. There is a small spur at the inferior aspect of the humeral head. TECHNIQUE: 2D digital imaging was performed of the left shoulder. Two images were obtained. AP and axillary views were obtained. COMPARISON: No exams were available for comparison FINDINGS: BONES: No acute fracture is present. No bony destructive lesion is seen. JOINTS: No dislocation present. SOFT TISSUE: Normal. IMPRESSION: Mild degenerative changes of the left shoulder. DATA REPOSITORY: RADIATION DOSE DELIVERED:
== END 2022-06-12 15:00 | disposition home or self-care (01) ==
LOC: DIORS 15:00
PROVIDERS: PCP Internal Medicine; Referring Provider Internal Medicine; Visit Provider Physician Assistant
DX: M65.331 Trigger finger, right middle finger; M75.52 Bursitis of left shoulder; M75.82 Other shoulder lesions, left shoulder; E11.9 Type 2 diabetes mellitus without complications
CPT/HCPCS: 20550; 73030; J1030

== ENCOUNTER 2023-02-16 11:09 | Emergency (ER) | payer MEDICARE, OTHER, SELFPAY ==
[2023-02-16 11:17] VITALS: BP 151/82; PULSE 84; RESP 20; TEMP 35.7; O2SAT 99
--- NOTE | 2023-02-16 11:19 | ED.GENADUL_ITS ---
Discharge Plan Disposition Patient Disposition: Home Discharge Details Clinical Impression: Lumbar paraspinal muscle spasm, Acute left flank pain Primary Care Provider: Veronica Nugent ED Provider: Butch Francis [place] Meds and New Rx's Prescriptions: New lidocaine [Lidoderm] 5 % adhesive patch,medicated 1 patch topical DAILY Qty: 15 0RF Rx Instructions: leave on most painful area for up to 12 hrs diazepam 2 mg tablet 2 mg PO QHS PRNQty: 3 0RF No Action albuterol sulfate [Ventolin HFA] 90 mcg/actuation HFA aerosol inhaler 2 inh Inhalation QID PRN (Reason: bronchospasm) Qty: 1 0RF cholecalciferol (vitamin D3) 25 mcg (1,000 unit) tablet 25 mcg PO DAILY loratadine 10 mg tablet 10 mg PO DAILY PRN (Reason: allergy symptoms) Qty: 90 3RF rizatriptan [Maxalt] 10 mg tablet 10 mg PO DAILY PRN (Reason: migraine headache) Qty: 12 11RF escitalopram oxalate [Lexapro] 20 mg tablet 20 mg PO DAILY Qty: 90 3RF topiramate [Topamax] 25 mg tablet 25 mg PO BID Qty: 180 3RF Rx Instructions: vertigo/migraine melatonin 5 mg tablet 20 mg PO HS omeprazole magnesium [Prilosec OTC] 20 mg tablet,delayed release (DR/EC) 20 mg PO DAILY Qty: 90 3RF bupropion HCl [Wellbutrin XL] 300 mg tablet extended release 24 hr 300 mg PO QAM Qty: 90 3RF promethazine 25 mg tablet 25 mg PO Q6H PRN (Reason: nausea and vomiting) Qty: 20 1RF Rx Instructions: Nausea associated with vertigo meclizine 25 mg tablet 25 mg PO DAILY PRN (Reason: dizziness/vertigo) Qty: 90 3RF Rx Instructions: 1 qd scheduled, additional tabs daily prn (pt reports instructed this way by Neurologist) celecoxib 100 mg capsule 100 mg PO DAILY PRN (Reason: pain) Qty: 90 3RF (DME) lancets Misc See Rx Instructions .MEDSUPPLY Qty: 100 3RF Rx Instructions: As directed to check blood glucose daily. No insulin. Accu-check fastclix. levothyroxine 100 mcg capsule 100 mcg PO DAILY Qty: 90 3RF olmesartan [Benicar] 20 mg tablet 20 mg PO DAILY Qty: 90 3RF metoprolol succinate [Toprol XL] 100 mg tablet extended release 24 hr 100 mg PO DAILY Qty: 90 3RF atorvastatin 40 mg tablet 40 mg PO DAILY Qty: 90 3RF glimepiride 4 mg tablet 4 mg PO BID Qty: 180 3RF acetaminophen 500 mg tablet 1,000 mg PO Q8H PRN (Reason: pain) Qty: 90 3RF Discharge Instructions Instructions: Muscle Spasm (ED) Additional Instructions: Please read all of the information that accompanies these instructions. You were seen in the emergency department for your low back pain. Your CAT scan showed no sign of a kidney stone. Your blood work showed that you are not anemic and that you have had no acute damage to your kidneys. Please schedule an appointment with your primary care provider next week. Please return to the emergency department if develop fever, lose control of your bowel or bladder, or if you have any other concerns. Medical Decision Making This is a chronically ill afebrile and not tachycardic 77-year-old female with left-sided flank pain concerning for multiple etiologies. Given her prior history of posterior lumbar spinal fusion it is certainly possible that the patient has had migration of her hardware causing her to have pain. I do not feel that she requires an emergent MRI however I am not concerned for emergent causes of back pain. Specifically she is not anticoagulated to suggest increased risk for spinal epidural hematoma. She has not recently had any back instrumentation. She has had no fevers and is not an IV drug user to suggest increased risk for spinal epidural abscess. She has no loss of sensation nor any numbness or tingling in her perineum to suggest increased risk for cauda equina syndrome. No trauma to suggest increased risk for pathological fracture. Furthermore, no history of malignancy. Soft nontender abdomen so not concern for intra-abdominal infection. No pain out of proportion to suggest necrotizing soft tissue infection. Not hypotensive nor does she have a history of AAA so doubt ruptured AAA. Given flank pain and family history of ureterolithiasis will obtain CT scan without contrast to assess for ureterolithiasis. She has also been taking Celebrex so we will assess renal function with basic metabolic panel. No hyperreflexia to suggest acute cord compression. Patient the patient's age will also obtain lumbar spinal recons.We will attempt treatment with IV acetaminophen, Lidoderm patch, and low-dose oral diazepam. 12:45 PM CBC with no anemia or thrombocytopenia noted leukocytosis. Basic metabolic panel with CKD but no superimposed LAVON. Mild hyperglycemia but no anion gap to suggest DKA. Urinalysis negative for nitrites leukoesterase and hematuria. 1:[address] scan reassuring against any acute abnormalities. There is no signs of ureterolithiasis. She has stable fusions in her lumbar spine. No lytic lesions. I have asked health community health coordinator Snehal to have the patient seen within the week by her primary care provider. It is certainly possible that she could benefit from an outpatient MRI of her lumbar spine to assess for any migration of her hardware but I did not feel that she required this emergently. For the moment we will proceed with an empiric trial of expectant outpatient management. I reviewed checked the patient's record in the PDMP and she had no active opiate nor benzodiazepine prescriptions. She did feel slightly improved following low-dose oral diazepam. I sent a prescription for several diazepam tablets to the patient's pharmacy and I also advised Lidoderm patches. I counseled her on avoiding benzodiazepines before driving. She will take 2 mg diazepam as needed nightly. Chronic conditions affecting the care of the patient: Back pain History obtained from an outside historian: Patient's daughter [place] [facility] Medications: Diazepam and acetaminophen Social determinants of health affecting disposition: N/A Management discussed with: N/A Treatment/interventions considered: N/A Response to therapies provided: Improved in the ED HPI General Date/Time Provider Initiated Documentation: 02/16/23 11:19 . HPI Narrative: This is a 77-year-old female with remote history of lumbar spinal fusion now in the emergency department with her daughter in the setting of left-sided lower back pain that began 24 to 48 hours ago. Patient denies any specific trauma. She says that she is intermittently been complaining of back pain for years. She said that she was slow to get up yesterday and throughout the day her left- sided low pain steadily worsened. By the evening she had to sit in her recliner. She attempted treatment at home with a heating pad but this did not improve her symptoms. She takes daily Celebrex which she took this morning. Her pain caused her to have some nausea but she denies abdominal pain. She says that her pain occasionally radiates from her left lower back down to just below her waist. She does not feel that it is consistent with prior episodes of sciatica. She has had no dysuria nor frequency. She denies chest pain shortness of breath. She has not lost control of her bowels or bladder. She denies routine ethanol and illicits. She is not anticoagulated. She has had no numbness or tingling in her lower extremities. She has not had any recent spinal manipulation. Related Data Home Medications Medication Instructions Recorded Confirmed acetaminophen 500 mg tablet 1,000 mg PO Q8H PRN pain #90 tabs 02/07/19 02/16/23 albuterol sulfate 90 mcg/actuation 2 inh inhalation QID PRN 10/19/20 02/16/23 aerosol inhaler (Ventolin HFA) bronchospasm #1 inh cholecalciferol (vitamin D3) 25 25 mcg PO DAILY 03/08/21 02/16/23 mcg (1,000 unit) tablet loratadine 10 mg tablet 10 mg PO DAILY PRN allergy 03/08/21 02/16/23 symptoms #90 tab-caps rizatriptan 10 mg tablet (Maxalt) 10 mg PO DAILY PRN migraine 12/28/21 02/16/23 headache #12 tabs levothyroxine 100 mcg capsule 100 mcg PO DAILY Thyroid #90 caps 07/31/22 02/16/23 olmesartan 20 mg tablet (Benicar) 20 mg PO DAILY #90 tabs 09/22/22 02/16/23 celecoxib 100 mg capsule 100 mg PO DAILY PRN pain #90 caps 11/01/22 02/16/23 lancets #100 ea 11/01/22 02/16/23 metoprolol succinate 100 mg 100 mg PO DAILY #90 tabs 12/25/22 02/16/23 tablet,extended release 24 hr (Toprol XL) atorvastatin 40 mg tablet 40 mg PO DAILY #90 tabs 01/08/23 02/16/23 glimepiride 4 mg tablet 4 mg PO BID #180 tabs 01/08/23 02/16/23 bupropion HCl 300 mg 24 hr tablet, 300 mg PO QAM #90 tabs 01/29/23 02/16/23 extended release (Wellbutrin XL) escitalopram oxalate 20 mg tablet 20 mg PO DAILY #90 tabs 01/29/23 02/16/23 (Lexapro) meclizine 25 mg tablet 25 mg PO DAILY PRN 01/29/23 02/16/23 dizziness/vertigo #90 tab-caps melatonin 5 mg tablet 20 mg PO HS 01/29/23 02/16/23 omeprazole magnesium 20 mg 20 mg PO DAILY #90 tabs 01/29/23 02/16/23 tablet,delayed release (Prilosec OTC) promethazine 25 mg tablet 25 mg PO Q6H PRN nausea and 01/29/23 02/16/23 vomiting #20 tabs topiramate 25 mg tablet (Topamax) 25 mg PO BID #180 tabs 01/29/23 02/16/23 diazepam 2 mg tablet 2 mg PO QHS PRN #3 tabs 02/16/23 lidocaine 5 % topical patch 1 patch topical DAILY #15 ea 02/16/23 (Lidoderm) Previous Rx's Medication Instructions Recorded acetaminophen 500 mg tablet 1,000 mg PO Q8H PRN pain #90 tabs 02/07/19 albuterol sulfate 90 mcg/actuation 2 inh inhalation QID PRN 10/19/20 aerosol inhaler (Ventolin HFA) bronchospasm #1 inh loratadine 10 mg tablet 10 mg PO DAILY PRN allergy 03/08/21 symptoms #90 tab-caps rizatriptan 10 mg tablet (Maxalt) 10 mg PO DAILY PRN migraine 12/28/21 headache #12 tabs levothyroxine 100 mcg capsule 100 mcg PO DAILY Thyroid #90 caps 07/31/22 olmesartan 20 mg tablet (Benicar) 20 mg PO DAILY #90 tabs 09/22/22 celecoxib 100 mg capsule 100 mg PO DAILY PRN pain #90 caps 11/01/22 lancets #100 ea 11/01/22 metoprolol succinate 100 mg 100 mg PO DAILY #90 tabs 12/25/22 tablet,extended release 24 hr (Toprol XL) atorvastatin 40 mg tablet 40 mg PO DAILY #90 tabs 01/08/23 glimepiride 4 mg tablet 4 mg PO BID #180 tabs 01/08/23 bupropion HCl 300 mg 24 hr tablet, 300 mg PO QAM #90 tabs 01/29/23 extended release (Wellbutrin XL) escitalopram oxalate 20 mg tablet 20 mg PO DAILY #90 tabs 01/29/23 (Lexapro) meclizine 25 mg tablet 25 mg PO DAILY PRN 01/29/23 dizziness/vertigo #90 tab-caps omeprazole magnesium 20 mg 20 mg PO DAILY #90 tabs 01/29/23 tablet,delayed release (Prilosec OTC) promethazine 25 mg tablet 25 mg PO Q6H PRN nausea and 01/29/23 vomiting #20 tabs topiramate 25 mg tablet (Topamax) 25 mg PO BID #180 tabs 01/29/23 diazepam 2 mg tablet 2 mg PO QHS PRN #3 tabs 02/16/23 lidocaine 5 % topical patch 1 patch topical DAILY #15 ea 02/16/23 (Lidoderm) Allergies Allergy/AdvReac Type Severity Reaction Status Date / Time adhesive Allergy Severe severe Verified 01/29/23 14:41 skin breakdown gentamicin Allergy Severe TOXICITY Verified 01/29/23 14:41 latex Allergy Severe Eats the Verified 01/29/23 14:41 skin away metformin AdvReac Severe diarrhea Verified 01/29/23 15:15 codeine AdvReac Mild upset Verified 01/29/23 14:41 stomach sucralose AdvReac Mild VERTIGO Verified 01/29/23 14:41 CLAMS AdvReac Severe VERY SICK Uncoded 01/29/23 14:41 PFSH All Active Problems (Updated 02/16/23 @ 12:58 by Butch Francis MD) Lumbar paraspinal muscle spasm (Acute) Acute left flank pain (Acute) Cardiac murmur (Acute ~01/2023) Chronic vertigo (Chronic ~2013) 10/2021 BPPV vs. 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; MRSA bacteremia Hypothyroidism (Acute) H/O Graves; S/P ablation Obesity (Acute) Chronic post-traumatic stress disorder (Acute 11/05/13) Depressive disorder (Chronic) Balance disorder (Acute) 11/15/21 [facility] [place] Gastroesophageal reflux disease (Acute) S/P Eboni fundoplication Migraine (Chronic) Hyperlipidemia (Acute 10/02/12) Chronic low back pain with right-sided sciatica (Acute 01/25/18) related to limbar fusion surgery 2006 [facility] Insomnia (Acute) Iron deficiency (Chronic) Obstructive sleep apnea (adult) (pediatric) (Acute 11/05/13) Osteoarthritis (Acute) knees, lumbar; scoliosis; spondylolithesis; far out syndrome Sensorineural hearing loss, bilateral (Chronic 05/02/18) Hearing Aids Medical History (Updated 02/16/23 @ 12:58 by Butch Francis MD) Bursitis of left shoulder (~05/2022) Cataract Cataract Cellulitis of left lower extremity (07/14/16) Depression Diverticulosis (07/06/14) 07/06/[address] Armendariz of sigmoid colon Diverticulosis DJD (degenerative joint disease) GERD (gastroesophageal reflux disease) Glaucoma Glaucoma H/O radioactive iodine thyroid ablation Hypertension Hyperthyroidism Impaired renal function Internal hemorrhoid Internal hemorrhoids (07/07/14) Lumbar radiculitis Obesity BENITA (obstructive sleep apnea) Osteoarthritis Post traumatic stress disorder (PTSD) Restless leg syndrome Right shoulder pain Rotator cuff tear, right Sensorineural hearing loss, bilateral (02/12/14) Tendonitis of left rotator cuff (~05/2022) Trigger finger, right middle finger (~05/2022) Depo-Medrol injection: 06/12/2022 Vertigo Surgical History Aborted Manohar-en-Y Bypass (03/11/15) Colonoscopy - IV Sedation (~06/2014) Dr. Armendariz diverticulosis, internal hemorrhoids History of appendectomy History of cataract surgery History of cholecystectomy History of knee replacement bilat knee History of lumbar fusion (~2006) History of total right hip replacement s/p R anterior RAZA (02-06-19) with intraoperative fracture Lap Take down Eboni (03/11/15) liposuction (~2016) Lysis of adhesions (03/11/15) panniculectomy (~2016) Paraesophagel Hernia repair (03/11/15) Posterior crura-plasty, gastropexy, intra-op EGD (03/11/15) S/P laminectomy (~2006) elbert placement S/P tonsillectomy and adenoidectomy S/P total abdominal hysterectomy and bilateral salpingo-oophorectomy Status post carpal tunnel release of both wrists Status post Eboni fundoplication Status post right rotator cuff repair (~1993) Total replacement of hip (~2010) left Family History Mother No problems noted. Father , age 92 Heart disease Social History Smoking/Tobacco Use Status: Former Tobacco Use Smoking risk assessment performed?: Yes Alcohol Intake: current Alcohol Intake frequency: holidays/special occasions only Alcohol type: other Drug use: Never Substance use type: does not use Housing: house Number of Children: 3 Communication Needs: Hard of Hearing current occupation: retired Current gender identity: female What is your relationship status?: Panel score (0-1 are the most socially isolated patients): 1 What type of physical activity do you participate in: none Duration: < 15 minutes/day Frequency: 1-2 times per week Seatbelt use: always Drive intox or ride w/intox trackless trolley driver: No Working smoke detector in home: Yes Fire extinguisher in home: Yes Carbon monox detector in home: Yes Exam Narrative Exam Narrative: General: Well-appearing in no acute distress speaking in complete sentences. Intermittently tearful discussing the loss of her . Head: Normocephalic, atraumatic. Eye: Pupils equal, round reactive to light. Extraocular eye movements intact. No conjunctival injection. No scleral icterus. Ear, nose, mouth, throat: Grossly normal inspection. Normal voice, handling secretions normally. Neck: Trachea midline. Cardiovascular: Well-perfused distal extremities. Regular rate and rhythm Respiratory: Nonlabored respiration. Clear lungs bilaterally. Gastrointestinal: Nondistended abdomen. Soft nontender abdomen no rebound or guarding. Back: Well-healed midline lumbar spinal incision. Left-sided lumbar paraspinal muscle tenderness with spasm. No midline lumbar spinal tenderness. No step- offs no deformities to the back. Musculoskeletal: Moving all 4 extremities spontaneously. No hyperreflexia. Diminished patellar reflexes bilaterally with scars from prior knee replacements. Pelvis stable to anterior posterior compression. 2+ PT and DP pulses. 5 out of 5 bilateral lower extremity strength. Feet warm and well- perfused. Skin: Normal for age and race, grossly normal temperature and turgor. No acute rash. Neurologic: Alert and appropriate, no apparent acute deficits. Psychiatric: Mood and manner are appropriate. Grooming and personal hygiene are appropriate.
--- NOTE | 2023-02-16 11:45 | DI.CT_ITS ---
Exam(s) CT LUMBAR SPINE RECONS CT ABDOMEN PELVIS WO EXAM: CT ABDOMEN PELVIS WO CLINICAL HISTORY: Left-sided flank pain. TECHNIQUE: Imaging Protocol: Axial computed tomography images with coronal and sagittal reformatted images were created and reviewed. Oral: / no COMPARISON: DX XR lumbar spine complete from 01/08/[address] LUMBAR SPINE RECONS from 02/16/2023 FINDINGS: ABDOMEN and PELVIS: Lung Bases: Normal where visualized. Liver: Normal density. No measurable mass. Gallbladder and biliary tract: Status post cholecystectomy. No radiodense calculus or dilation. Stomach and small bowel: Surgical clips the GE junction and fundus of stomach. Pancreas: Normal density, no abnormal calcifications or inflammatory process. Spleen: Normal. Kidneys: Normal size, contour and axis. No radiodense stones or obstructive uropathy. No masses seen. Adrenal glands: No masses seen. Lymph nodes: Within normal limits. Abdominal Aorta: Abdominal portion non-dilated. Atherosclerotic calcifications. Bladder: Symmetric distention, no gross wall thickening. Large bowel: Moderate to increased stool seen ascending and transverse colon. Little stool distally. No obstruction or bowel wall thickening. No evidence of appendicitis Peritoneal cavity: No ascites, collection or mesenteric inflammatory response. Reproductive organs: Within normal limits. Bones: Bilateral hip prostheses create artifact in the pelvis obscuring visualization of portions of the bladder and bowel. Hardware related to previous posterior fusion noted from L3 through L5. Alig nment appears unchanged. Stable scoliosis. Degenerative disc changes greatest at L1-2. No evidence of fracture. IMPRESSION: Stable degenerative and postsurgical changes of the lumbar spine. No acute abnormality. No acute abnormality in the abdomen or pelvis. RADIATION DOSE DELIVERED: Total DLP DATA REPOSITORY: All CT scans at this facility are submitted to the National Radiology Data Registry (NRDR) Dose Index Registry (DIR) with the [employer] (ACR). RADIATION OPTIMIZATION: All CT scans at this facility use at least one of these dose optimization te chniques: automated exposure control; mA and/or kV adjustment per patient size (includes targeted exa ms where dose is matched to clinical indication); or iterative reconstruction.
[2023-02-16] MEDS: diazePAM 2 MG TAB PO (12:03)
[2023-02-16] MEDS: Acetaminophen 500 MG TAB 1000 MG PO (12:03)
[2023-02-16] MEDS: Lidocaine 5% Patch 2 PATCH TP (12:05)
[2023-02-16 12:23] LABS: Abs Immature Grans 0.02 10^3/uL (0.0-0.06); Absolute Basophil Count 0.03 10^3/uL (0.0-0.2); Absolute Eosinophil Count 0.15 10^3/uL (0.0-0.7); Absolute Lymphocyte Count 1.96 10^3/uL (1.2-3.4); Absolute Monocyte Count 0.47 10^3/uL (0.1-0.8); Basophils % 0.5; Eosinophils % 2.4; HCT 41.5 % (36.0-46.0); HGB 13.8 g/dL (11.2-15.7); Immature Grans % 0.3; MCH 30.3 pg (27.0-33.0); MCHC 33.3 % (32.0-36.0); MCV 91 fL (80-95); Monocytes % 7.7; Neutrophils % 57.1; Platelet Count 260 10^3/uL (130-400); RBC 4.55 10^6/uL (3.93-5.22); RDW 13.5 % (11.7-14.6); RDW-SD 45.9 fL; WBC 6.13 10^3/uL (4.4-10.8)
[2023-02-16 12:25] LABS: Anion Gap 7.7 mmol/L (3-11); BUN 20 mg/dL (7-18); CO2 27.3 mmol/L (21.0-32.0); CREATININE 1.3 mg/dL (0.55-1.02); Calcium 9.5 mg/dL (8.5-10.1); Chloride 105 mmol/L (98-107); Estimated GFR 42.09 (mL/min/1.73m2); Glucose 214 mg/dL (74-106); Potassium 3.9 mmol/L (3.5-5.1); Sodium 140 mmol/L (136-145)
[2023-02-16 12:39] LABS: Bilirubin Negative (Negative); Blood Negative (Negative); Clarity Clear (Clear); Glucose Negative (Negative); Ketones Negative (Negative); Leukocyte Esterase Negative (Negative); Nitrite Negative (Negative); Urobilinogen 0.2 mg/dL (Up to 0.2)
[2023-02-16 13:29] VITALS: BP 154/78; PULSE 75; RESP 18; O2SAT 98
== END 2023-02-16 13:34 | disposition home or self-care (01) ==
PROVIDERS: Emergency Provider Emergency Medicine; PCP Nurse Practitioner Adult Health
DX: M62.830 Muscle spasm of back (principal); R10.9 Unspecified abdominal pain; D72.829 Elevated white blood cell count, unspecified; R73.9 Hyperglycemia, unspecified; N18.9 Chronic kidney disease, unspecified; I12.9 Hypertensive chronic kidney disease with stage 1 through stage 4 chronic kidney disease, or unspecified chronic kidney disease; E03.9 Hypothyroidism, unspecified
CPT/HCPCS: 36415; 80048; 99284; 74176; 81003; 85025

== ENCOUNTER 2023-03-16 01:24 | Outpatient (CLI) | payer MEDICARE, OTHER, SELFPAY ==
[2023-03-16 10:16] LABS: Abs Immature Grans 0.01 10^3/uL (0.0-0.06); Absolute Basophil Count 0.02 10^3/uL (0.0-0.2); Absolute Lymphocyte Count 1.78 10^3/uL (1.2-3.4); Absolute Monocyte Count 0.41 10^3/uL (0.1-0.8); Absolute Neutrophil Count 2.72 10^3/uL (1.2-6.7); Basophils % 0.4; Eosinophils % 3.9; HCT 40.2 % (36.0-46.0); HGB 13.1 g/dL (11.2-15.7); Immature Grans % 0.2; Lymphocytes % 34.6; MCH 30.5 pg (27.0-33.0); MCHC 32.6 % (32.0-36.0); MCV 94 fL (80-95); MPV 10.3 fL (8.0-11.0); Neutrophils % 52.9; Platelet Count 269 10^3/uL (130-400); RBC 4.29 10^6/uL (3.93-5.22); RDW 13.7 % (11.7-14.6); RDW-SD 47.4 fL; WBC 5.14 10^3/uL (4.4-10.8)
[2023-03-16 10:29] LABS: COMMENT (LAB VIEW ONLY) 193.54 mg/dL; Microalb ug/mg Crea 3.8 ug/mg Cr
[2023-03-16 10:30] LABS: Iron 47 ug/dL (50-170); Total Iron Binding Capacity 310 ug/dL (250-450); Transferrin Sat 15 % (15-50)
[2023-03-16 10:53] LABS: Vitamin D 25 Total 39.6 ng/mL (30-100)
[2023-03-16 11:01] LABS: ALT 54 U/L (14-59); AST 27 U/L (15-37); Albumin 3.5 g/dL (3.4-5.0); Alkaline Phosphatase 162 U/L (46-116); Anion Gap 5.3 mmol/L (3-11); BUN 20 mg/dL (7-18); Bilirubin, Total 0.4 mg/dL (0.2-1.0); CO2 29.7 mmol/L (21.0-32.0); CREATININE 1.4 mg/dL (0.55-1.02); Calcium 8.9 mg/dL (8.5-10.1); Calculated LDL 65 mg/dL (<100); Chloride 106 mmol/L (98-107); Cholesterol 161 mg/dL (<200); Estimated GFR 38.51 (mL/min/1.73m2); Ferritin 67 ng/mL (8-252); Folate 15.2 ng/mL (8.6-20.0); Glucose 199 mg/dL (74-106); HDL Cholesterol 80 mg/dL (40-60); Magnesium 1.6 mg/dL (1.8-2.4); Potassium 3.6 mmol/L (3.5-5.1); Sodium 141 mmol/L (136-145); TSH (W/Ref FT4) 2.49 uIU/mL (0.36-3.74); Total Protein 6.8 g/dL (6.4-8.2); Triglyceride 82 mg/dL (<150); Vitamin B12 583 pg/mL (193-986)
[2023-03-16 11:13] LABS: Creatine Kinase 81 U/L (26-192)
[2023-03-19 09:34] LABS: Prealbumin 21 mg/dL (20-40)
== END 2023-03-16 01:25 | disposition home or self-care (01) ==
LOC: LBO 01:24
PROVIDERS: PCP Nurse Practitioner Adult Health; Visit Provider Nurse Practitioner Adult Health
DX: E89.0 Postprocedural hypothyroidism (principal); Z86.2 Personal history of diseases of the blood and blood-forming organs and certain disorders involving the immune mechanism; E11.9 Type 2 diabetes mellitus without complications; E61.1 Iron deficiency; R19.7 Diarrhea, unspecified; I10 Essential (primary) hypertension; N18.9 Chronic kidney disease, unspecified; M79.10 Myalgia, unspecified site; E55.9 Vitamin D deficiency, unspecified
CPT/HCPCS: 36415; 80053; 80061; 82306; 82550; 82043; 82570; 82607; 82728; 82746; 83540; 83550; 83735; 84134; 84443; 85025

== ENCOUNTER 2023-04-30 01:24 | Outpatient (CLI) | payer MEDICARE, OTHER, SELFPAY ==
--- NOTE | 2023-04-30 13:50 | DI.US_ITS ---
APPROVED REPORT EXAM: Comprehensive 2D, Doppler, and color-flow Echocardiogram Patient Location: Out-Patient Director Critical Care: Marley Kaye RDCS (AE) Indications: Characterize murmur Other Information Study Quality: Adequate Conclusion Borderline concentric left ventricular hypertrophy. Ejection fraction is 55 to 60%. Wall motion is normal Normal right ventricular size and systolic function Both atria are normal in size Aortic valve is trileaflet and mildly sclerotic without stenosis or regurgitation Normal mitral valve with mild systolic prolapse. There is moderate eccentric mitral regurgitation Normal tricuspid valve with trace to mild regurgitation. Normal right ventricular systolic pressure of 23 mmHg Wall motion Left Ventricle The left ventricle is normal size. The left ventricular systolic function is normal. The left ventric ular ejection fraction is within the normal range. Borderline concentric left ventricular hypertrophy . There is normal LV segmental wall motion. There is no ventricular septal defect visualized. LVEF is 57%. Right Ventricle The right ventricle is normal size. The right ventricular systolic function is normal. The RVSP is 23 .1mmHg. Atria The left atrium size is normal. The right atrium size is normal. The interatrial septum is intact wit h no evidence for an atrial septal defect. Aortic Valve The Aortic valve is mildly sclerotic. Aortic valve is trileaflet. There is no aortic valvular stenosi s. No aortic regurgitation is present. Mitral Valve The mitral valve is normal in structure. No evidence of mitral valve stenosis. Moderate mitral regurg itation. Mitral regurgitation jet is eccentrically directed. Mild mitral valve prolapse. Tricuspid Valve The tricuspid valve is normal in structure. There is no tricuspid valve stenosis. Trace to mild tric uspid regurgitation. Pulmonic Valve The pulmonary valve is normal in structure. There is no pulmonic valvular stenosis. Mild pulmonic reg urgitation. Great Vessels The aortic root is normal in size. The ascending aorta is normal in size. IVC is normal in size and c ollapses >50% with inspiration. Pericardium There is no pericardial effusion. 2D Dimensions IVSD d PLAX 1.14 cm F: 0.6-1.0 LV Vol A2C d MOD 96.6 mL LVPW d PLAX 1.12 cm F: 0.6 - 1.0 LV Vol A4C d MOD 91.1 mL LVID d PLAX 4.27 cm F: 3.8 - 5.2 LA vol/ BSA A2C s A-L 21.8 mL/m2 LVDs 3.00 cm F: 2.2 - 3.5 LA vol/ BSA A4C s A-L 23.4 mL/m2 Ao Root d 2.84 cm F: 2.7 - 3.3 LA Vol/ BSA Biplane s A-L 24.4 mL/m2 RA Area A4C 12.68 cm2 LA Area A4C s MOD 17.01 cm2 RA Vol/ BSA A4C s A-L 15.8 mL/m2 LA Area A2C s MOD 15.15 cm2 Ao Asc Diam d 3.25 cm F: 2.3 - 3.1 LV EF A4C MOD 57.4 % LV EF Teichholz 56.2 % LV EF A2C MOD 55.4 % LVEF (Feldman's) 56.72 % F: 54 - 74 LV EF Biplane MOD 56.7 % LV Volume 72.68 mL F: 46 - 106 SV 54.58 mL LV Volume Index 37.08 mL/m2 F: 29 - 61 SV Index 27.87 mL/m2 LV Vol Biplane MOD 96.2 mL FS 29.10 % M-Mode TAPSE 2.01 cm (M/F) >1.7 LV Diastology MV E' medial 0.049 (>0.07 m/s) E/A Ratio 0.9 LV E/e MED 12.80 (<14) MV E Vmax 0.63 (0.4-1.3 m/s) MV E' lateral 0.057 (>0.1 m/s) MV A Vmax 0.70 (0.4-1.3 m/s) LV E/e LAT 11.00 (<14) MV E/A Ratio 0.88 MV E/E' medial 12.84 MV E/E' lateral 11.01 Aortic Valve LVOT Area 3.14 cm2 AoV Area Vmax 2.50 cm2 LVOT Vmax 1.14 m/s AoV Area/ BSA (Vmax) 1.28 cm2/m2 LVOT Mean Jelani. 0.71 m/s SUHAIL Mean Jelani. 2.38 cm2 LVOT Peak Grad 5.2 mmHg SUHAIL Mean Jelani. Index 1.21 cm2/m2 LVOT Mean Grad 2.4 mmHg LVOT VTI 0.202 m LVOT Diam s 2.00 cm AoV Vmax 1.43 m/s Velocity Ratio 0.80 AoV Mean Jelani. 0.94 m/s AoV Peak Grad 8.2 mmHg LVOT SV 63.45 mL AoV Mean Grad 4.2 mmHg AoV VTI 0.257 m AoV Area VTI 2.47 cm2 AoV Area/ BSA (VTI) 1.26 cm/m2 Mitral Valve MV DT 251 (160-240 msec) MV PHT 73 msec MV Area PHT 3.02 cm2 MV VTI 0.261 m MV Area VTI 2.43 (4.0-6.0 cm2) Pulmonary Valve PV Vmax 0.68 (0.5-1.5 m/s) RVOT Peak Gr. 1.16 mmHg PV Peak Grad 1.9 mmHg RVOT Mean Gr. 0.60 mmHg PV Mean Grad 1.0 mmHg RVOT VTI 0.133 m PV VTI 0.135 m RVOT Vmax 0.54 m/s Tricuspid Valve TR Peak Grad 20.0 mmHg TR Vmax 2.24 m/s RA Pressure 3.00 mmHg RVSP (TR) 23.1 mmHg
== END 2023-04-30 01:44 ==
LOC: DI 01:25
PROVIDERS: PCP Nurse Practitioner Adult Health; Visit Provider Nurse Practitioner Adult Health
DX: R01.1 Cardiac murmur, unspecified (principal)
CPT/HCPCS: 93306

== ENCOUNTER → 2023-05-14 09:08 | Outpatient (BNVA) | payer MEDICARE, OTHER, SELFPAY | PROVIDERS: PCP Nurse Practitioner Adult Health; Referring Provider Nurse Practitioner Adult Health; Visit Provider Student in an Organized Health Care Education/Training Program | DX: M65.331 Trigger finger, right middle finger (principal) | CPT/HCPCS: 99213 ==

== ENCOUNTER 2023-06-13 10:36 | Day surgery (SDC) | payer MEDICARE, OTHER, SELFPAY ==
[2023-06-13 11:28] VITALS: BP 153/81; PULSE 60; RESP 16; TEMP 36.4; O2SAT 97
--- NOTE | 2023-06-13 11:40 | W.PM.DSUDISC ---
Date of service: 06/13/23 Time of Service: 11:40 Discharge Plan Disposition Patient Disposition: Home Condition: Good Discharge Details Reason For Visit: RMF trigger release Attending Provider: Rinku Gold Primary Care Provider: Veronica Nugent Home Meds and New Rx's Prescriptions: No Action albuterol sulfate [Ventolin HFA] 90 mcg/actuation HFA aerosol inhaler 2 inh Inhalation QID PRN (Reason: bronchospasm) Qty: 1 0RF cholecalciferol (vitamin D3) 25 mcg (1,000 unit) tablet 25 mcg PO DAILY loratadine 10 mg tablet 10 mg PO DAILY PRN (Reason: allergy symptoms) Qty: 90 3RF escitalopram oxalate [Lexapro] 20 mg tablet 20 mg PO DAILY Qty: 90 3RF topiramate [Topamax] 25 mg tablet 25 mg PO BID Qty: 180 3RF Rx Instructions: vertigo/migraine melatonin 5 mg tablet 20 mg PO HS omeprazole magnesium [Prilosec OTC] 20 mg tablet,delayed release (DR/EC) 20 mg PO DAILY Qty: 90 3RF bupropion HCl [Wellbutrin XL] 300 mg tablet extended release 24 hr 300 mg PO QAM Qty: 90 3RF promethazine 25 mg tablet 25 mg PO Q6H PRN (Reason: nausea and vomiting) Qty: 20 1RF Rx Instructions: Nausea associated with vertigo meclizine 25 mg tablet 25 mg PO DAILY PRN (Reason: dizziness/vertigo) Qty: 90 3RF Rx Instructions: 1 qd scheduled, additional tabs daily prn (pt reports instructed this way by Neurologist) diazepam 2 mg tablet 2 mg PO QHS PRN (Reason: Severe back pain) Qty: 10 0RF (DME) blood-glucose meter Misc See Rx Instructions .MEDSUPPLY Qty: 1 0RF Rx Instructions: As directed to check blood glucose daily. No insulin. Dispense covered brand. (DME) Blood Glucose Test Strip See Rx Instructions .MEDSUPPLY Qty: 100 3RF Rx Instructions: As directed to check blood glucose daily. No insulin. Accu-check fastclix. (DME) lancets Misc See Rx Instructions .MEDSUPPLY Qty: 100 3RF Rx Instructions: As directed to check blood glucose daily. No insulin. Accu-check fastclix. celecoxib 100 mg capsule 100 mg PO DAILY PRN (Reason: pain) Qty: 90 3RF magnesium oxide 400 mg magnesium tablet 400 mg PO DAILY Qty: 90 3RF Rx Instructions: Migraine preventative; may take every other day if daily results in loose stool rizatriptan [Maxalt] 10 mg tablet 10 mg PO DAILY PRN (Reason: migraine headache) Qty: 12 11RF levothyroxine 100 mcg capsule 100 mcg PO DAILY Qty: 90 3RF olmesartan [Benicar] 20 mg tablet 20 mg PO DAILY Qty: 90 3RF metoprolol succinate [Toprol XL] 100 mg tablet extended release 24 hr 100 mg PO DAILY Qty: 90 3RF atorvastatin 40 mg tablet 40 mg PO DAILY Qty: 90 3RF glimepiride 4 mg tablet 4 mg PO BID Qty: 180 3RF acetaminophen 500 mg tablet 1,000 mg PO Q8H PRN (Reason: pain) Qty: 90 3RF Discharge Instructions Stand Alone Forms: Alla Stover Finger Release Activity:: Activity as Tolerated Remove Dressings/Wound Care:: 48 hours Shower/Bathe:: 48 hours Diet:: As Tolerated Discharge Orders Discharge Orders: Discharge Order (Routine); Ordered 06/13/23 Ordered By: Mynor King DS: Diagnosis Discharge Diagnosis (1) Trigger finger, right middle finger: Status: Acute
[2023-06-13] MEDS: Lidocaine 1.5 % Pres-Free W/EPI 1/200,000 30 ML VIAL (13:18)
[2023-06-13] MEDS: Sodium Bicarbonate 50 MEQ/50 ML VIAL (13:18)
[2023-06-13 13:44] VITALS: BP 163/74; PULSE 56; RESP 16; TEMP 36; O2SAT 98
--- NOTE | 2023-06-13 14:05 | W.PM.OP ---
Date of service: 06/13/23 Time of Service: 13:30 Operative Note Operative Note DATE OF PROCEDURE: 06/13/23 PRE-OP DIAGNOSIS: Right middle and ring trigger fingers POST-OP DIAGNOSIS: same PROCEDURE: Trigger Finger Release -right middle and ring finger SURGEON: Rinku Gold ANESTHESIA TYPE: Local By Surgeon Refer to Anesthesia Record PATHOLOGY: none sent COMPLICATIONS: None Patient was transported to: same day Patient's condition: stable Indications: I have seen Alejandra in clinic for symptoms of a trigger finger. The catching, clicking, locking, and pain limited function. The diagnosis of trigger finger was evident. The symptoms had not responded to conservative measures. I discussed trigger finger release with the patient. I reviewed the risks of the procedure to include, but not limited to, bleeding, infection, pain, stiffness, incomplete release, damage to nerves or vessels, continued catching, recurrence. Despite these risks, the patient elected to proceed. Findings: There was a tightened A1 cande which was released. The flexor tendons were inspected and the patient was able to move the finger without any catching, clicking, or locking. The middle finger had significant inflammatory changes around the A1 cande. Procedure Description: Alejandra was greeted in the preoperative holding area where the correct side was identified and marked. The consent was reviewed with the patient and signed. All questions were answered. She was taken back to the operating room. The patient was placed into the supine position on the operating room table with the right arm on an arm board. All bony prominences were well padded. No prophylactic antibiotics were administered since this was a clean, elective hand surgical case. The right arm was then prepped with Chloraprep and draped in a standard fashion with stockinette and extremity drape. A timeout to confirm correct identity, side and site, procedure, allergies, anesthesia, and medical concerns was performed. The surgical site was marked over the A1 cande of the ring and middle fingers. This was confirmed with palpation during finger flexion. This area, overlying the metacarpal head, was then anesthetized with 1% Lidocaine. The patient tolerated this well and once the anesthetic had setup, the procedure began. Starting with the ring finger, A longitudinal incision was made through skin only, approximately 1cm. The deep tissues were dissected bluntly. Once the A1 cande and flexor tendons were identified the soft tissue including neurovascular structures were retracted medially and laterally. There were no crossing structures over the A1 cande. The proximal edge of the cande was identified and the cande was incised with tenotomy scissors. There was a release of the tendons once this was fully released. The tendons were then removed from the wound and inspected. The tendons were then returned and the patient was asked to move the finger into deep flexion and back to extension. There was no recreation of the pre-operative symptoms. Attention was then turned to the middle finger. A 1 cm incision was made in the distal palmar crease. The deep tissues were dissected bluntly once the skin was incised. Soft tissue including neurovascular structures were retracted medially and laterally exposing the A1 cande and the flexor tendons. There were no crossing structures over the A1 cande. The proximal edge of the cande was identified and the cande was incised with tenotomy scissors. There was a release of the tendons once this was fully released. There was quite a bit of inflammatory tissue and scarring in this region. The tendons were then removed from the wound and inspected. The tendons were then returned and the patient was asked to move the finger into deep flexion and back to extension. There was no recreation of the pre-operative symptoms. The wound was then irrigated and the skin was closed with a 4-0 Nylon. This was dressed with gauze and a Conform dressing. The patient tolerated the procedure well and was returned to the Same Day Surgery area in a stable condition suffering no known complication.
== END 2023-06-13 14:25 | disposition home or self-care (01) ==
PROVIDERS: PCP Nurse Practitioner Adult Health; Visit Provider Student in an Organized Health Care Education/Training Program
PROC: (CPT 26055; principal; 2023-06-13 12:45)
DX: M65.331 Trigger finger, right middle finger (principal); M65.341 Trigger finger, right ring finger
CPT/HCPCS: 26055 ×2

== ENCOUNTER → 2023-06-22 09:39 | Outpatient (BNVA) | payer MEDICARE, OTHER, SELFPAY | PROVIDERS: PCP Nurse Practitioner Adult Health; Visit Provider Student in an Organized Health Care Education/Training Program | DX: Z47.89 Encounter for other orthopedic aftercare (principal); M79.641 Pain in right hand ==

== ENCOUNTER → 2023-08-20 02:15 | Outpatient (CLI) | payer MEDICARE, OTHER, SELFPAY ==
--- NOTE | 2023-08-20 09:15 | DI.MAMMO_ITS ---
Exam(s) MAMMO SCREENING EXAM: MAMMO SCREENING CLINICAL HISTORY: screening, Z12.39 TECHNIQUE: Mammograms were interpreted according to the usual protocol including computer analysis w [employer] CAD system, tomosynthesis and C-view imaging. COMPARISON: 2013 through 2019 FINDINGS: The breasts are composed of mainly fatty density , Breast Density category A. No suspicious masses or suspicious microcalcifications are seen. Biopsy marker clip again noted uppe r outer quadrant of left breast. No skin thickening or abnormal axillary lymph nodes are seen. There has been no significant change from prior exams. IMPRESSION: BI-RADS Category 1, Negative mammogram Yearly screening mammography is recommended. Breast Density - Category A, fatty density. A negative radiographic report should not delay biopsy if a dominant or clinically suspicious mass is present. Up to ten percent of cancers are not identified on mammography. A negative report may reinforce clinical impression. Adenosis and dense breasts may obscure an underlying neoplasm. False positive reports average 6 to 10%. Patient will receive a letter notifying them of these results.
== END ==
PROVIDERS: PCP Nurse Practitioner Adult Health; Visit Provider Nurse Practitioner Adult Health
DX: Z12.31 Encounter for screening mammogram for malignant neoplasm of breast (principal)
CPT/HCPCS: 77063; 77067

== ENCOUNTER 2024-03-19 05:05 | Outpatient (CLI) | payer MEDICARE, SELFPAY ==
[2024-03-19 14:29] LABS: Anion Gap 1.1 mmol/L (3-11); BUN 24 mg/dL (7-18); CO2 31.9 mmol/L (21.0-32.0); CREATININE 1.3 mg/dL (0.55-1.02); Calcium 9.8 mg/dL (8.5-10.1); Calculated LDL 69 mg/dL (<100); Chloride 103 mmol/L (98-107); Cholesterol 166 mg/dL (<200); Estimated GFR 41.83 (mL/min/1.73m2); Glucose 192 mg/dL (74-106); HDL Cholesterol 86 mg/dL (40-60); Potassium 3.8 mmol/L (3.5-5.1); Sodium 136 mmol/L (136-145); Triglyceride 59 mg/dL (<150)
[2024-03-19 14:31] LABS: COMMENT (LAB VIEW ONLY) 101.32 mg/dL
== END 2024-03-19 05:06 | disposition home or self-care (01) ==
LOC: LBO 05:05
PROVIDERS: PCP Nurse Practitioner Adult Health; Visit Provider Nurse Practitioner Adult Health
DX: E11.9 Type 2 diabetes mellitus without complications (principal); I10 Essential (primary) hypertension; E03.9 Hypothyroidism, unspecified; F32.9 Major depressive disorder, single episode, unspecified; E78.5 Hyperlipidemia, unspecified
CPT/HCPCS: 36415; 80048; 80061; 82043; 82570; 83036

== ENCOUNTER 2024-05-27 16:03 | Outpatient (REF) | payer MEDICARE, SELFPAY ==
--- NOTE | 2024-05-27 15:15 | SKI_PTH ---
PATIENT: Alejandra Angeles LOC: [facility] U#:[id number] AGE/SX: 78/F ROOM: RE05/27/[address]: Jatinder Ceron MD : [id number] BED: DIS: 05/27/2024 SPEC #: [id number] RECD: 05/28/24 15:29 STATUS: ALEX REQuita #: [id number] VIKKI: 05/27/24 15:[address]: Jatinder Ceron DEPT: Surgical Specimen RECD BY: Taisha Weston ENTERED: 05/28/24 15:30 SP TYPE: SKI OTHR DR: Veronica Nugent APRN Tissues: 1 - SKIN BIOPSY(SHAVE/PUNCH) Procedures: GROSS AND MICRO LEVEL 4 Comments: [id number]
== END 2024-05-27 16:04 | disposition home or self-care (01) ==
LOC: LBN 16:03
PROVIDERS: PCP Nurse Practitioner Adult Health; Visit Provider Otolaryngology
DX: H90.3 Sensorineural hearing loss, bilateral (principal); H61.91 Disorder of right external ear, unspecified
CPT/HCPCS: 88305

== ENCOUNTER → 2024-07-28 10:04 | Outpatient (BNVA) | payer MEDICARE, SELFPAY | PROVIDERS: PCP Nurse Practitioner Adult Health; Referring Provider Nurse Practitioner Adult Health; Visit Provider Student in an Organized Health Care Education/Training Program | DX: M65.342 Trigger finger, left ring finger (principal) | CPT/HCPCS: 99213 ==

== ENCOUNTER 2024-08-05 06:09 | Day surgery (SDC) | payer MEDICARE, SELFPAY ==
[2024-08-05 06:27] VITALS: BP 127/76; PULSE 61; RESP 16; TEMP 36.4; O2SAT 98
--- NOTE | 2024-08-05 07:07 | W.PM.DSUDISC ---
Date of service: 08/05/24 Time of Service: 07:09 Discharge Plan Disposition Patient Disposition: Home Condition: Good Discharge Details Reason For Visit: Left ring finger trigger finger Attending Provider: Rinku Gold Primary Care Provider: Veronica Nugent Home Meds and New Rx's Prescriptions: Continued cholecalciferol (vitamin D3) 25 mcg (1,000 unit) tablet 25 mcg PO DAILY melatonin 5 mg tablet 30 mg PO HS rizatriptan [Maxalt] 10 mg tablet 10 mg PO DAILY PRN (Reason: migraine headache) Qty: 12 11RF Tradjenta 5 mg tablet 5 mg PO QAM Qty: 90 1RF (DME) Blood Glucose Test Strip See Rx Instructions .MEDSUPPLY Qty: 100 3RF Rx Instructions: To check daily blood glucose. No insulin. Dispense Reli On brand. Dx: E11.9 to maintain HbA1c less than 7%. (DME) lancets Misc See Rx Instructions .MEDSUPPLY Qty: 100 3RF Rx Instructions: To check daily blood glucose. No insulin. Dispense Reli On brand. Dx: E11.9 to maintain HbA1c less than 7%. metoprolol succinate [Toprol XL] 100 mg tablet extended release 24 hr 100 mg PO DAILY Qty: 90 3RF albuterol sulfate [Ventolin HFA] 90 mcg/actuation HFA aerosol inhaler 2 inh Inhalation QID PRN (Reason: bronchospasm) Qty: 1 2RF atorvastatin 40 mg tablet 40 mg PO DAILY Qty: 90 3RF bupropion HCl [Wellbutrin XL] 300 mg tablet extended release 24 hr 300 mg PO QAM Qty: 90 3RF escitalopram oxalate [Lexapro] 20 mg tablet 20 mg PO DAILY Qty: 90 3RF glimepiride 4 mg tablet 4 mg PO BID Qty: 180 3RF levothyroxine 100 mcg capsule 100 mcg PO DAILY Qty: 180 3RF olmesartan [Benicar] 20 mg tablet 20 mg PO DAILY Qty: 90 3RF acetaminophen 500 mg tablet 1,000 mg PO Q8H PRN (Reason: pain) Qty: 90 3RF Discharge Instructions Stand Alone Forms: [place] Finger Release Activity:: Elevate Remove Dressings/Wound Care:: 48 hours Shower/Bathe:: 48 hours Diet:: As Tolerated Discharge Orders Discharge Orders: Discharge Order (Routine); Ordered 08/05/24 Ordered By: Ada Miramontes
[2024-08-05] MEDS: Lidocaine 1% Multi-Dose W/EPI 1/100,000 50 ML VIAL (07:30)
[2024-08-05] MEDS: Sodium Bicarbonate 50 MEQ/50 ML VIAL (07:30)
[2024-08-05 07:42] VITALS: BP 127/56; PULSE 55; RESP 16; TEMP 36.2; O2SAT 96
--- NOTE | 2024-08-05 08:47 | W.PM.OP ---
Date of service: 08/05/24 Time of Service: 07:25 Operative Note Operative Note DATE OF PROCEDURE: 08/05/24 PRE-OP DIAGNOSIS: Left Ring Finger Trigger Finger POST-OP DIAGNOSIS: same PROCEDURE: Trigger Finger Release - Left Ring Finger SURGEON: Rinku Gold ANESTHESIA TYPE: Local By Surgeon Refer to Anesthesia Record ESTIMATED BLOOD LOSS: 0 PATHOLOGY: none sent COMPLICATIONS: None Patient was transported to: same day Patient's condition: stable Indications: I have seen Alejandra in clinic for symptoms of a trigger finger. The catching, clicking, locking, and pain limited function. The diagnosis of trigger finger was evident. The symptoms had not responded to conservative measures. I discussed trigger finger release with the patient. I reviewed the risks of the procedure to include, but not limited to, bleeding, infection, pain, stiffness, incomplete release, damage to nerves or vessels, continued catching, recurrence. Despite these risks, the patient elected to proceed. Findings: There was a tightened A1 cande which was released. The flexor tendons were inspected and the patient was able to move the finger without any catching, clicking, or locking. Procedure Description: Alejandra was greeted in the preoperative holding area where the correct side was identified and marked. The consent was reviewed with the patient and signed. All questions were answered. She was taken back to the operating room. The patient was placed into the supine position on the operating room table with the left arm on an arm board. All bony prominences were well padded. No prophylactic antibiotics were administered since this was a clean, elective hand surgical case. The left arm was then prepped with Chloraprep and draped in a standard fashion with stockinette and extremity drape. A timeout to confirm correct identity, side and site, procedure, allergies, anesthesia, and medical concerns was performed. The surgical site was marked as a longitudinal incision directly over the A1 cande of the involved digit. This was confirmed with palpation during finger flexion. This area, overlying the metacarpal head, was then anesthetized with 1% Lidocaine. The patient tolerated this well and once the anesthetic had setup, the procedure began. A longitudinal incision was made through skin only, approximately 1cm. The deep tissues were dissected bluntly. Once the A1 cande and flexor tendons were identified the soft tissue including neurovascular structures were retracted medially and laterally. There were no crossing structures over the A1 cande. The proximal edge of the cande was identified and the cande was incised with tenotomy scissors. There was a release of the tendons once this was fully released. The tendons were then removed from the wound and inspected. Excess synovium was resected. The tendons were then returned and the patient was asked to move the finger into deep flexion and back to extension. There was no recreation of the pre-operative symptoms. The hand was then once more inspected for any A0 cande or area of possible constriction. The wound was then irrigated and the skin was closed with a 4-0 Nylon. This was dressed with gauze and a Conform dressing. The patient tolerated the procedure well and was returned to the Same Day Surgery area in a stable condition suffering no known complication.
== END 2024-08-05 08:22 | disposition home or self-care (01) ==
PROVIDERS: PCP Nurse Practitioner Adult Health; Visit Provider Student in an Organized Health Care Education/Training Program
PROC: (CPT 26055; principal; 2024-08-05 07:30)
DX: M65.342 Trigger finger, left ring finger (principal)
CPT/HCPCS: 26055; J2004

== ENCOUNTER → 2024-08-15 08:40 | Outpatient (BNVA) | payer MEDICARE, SELFPAY | PROVIDERS: PCP Nurse Practitioner Adult Health; Referring Provider Nurse Practitioner Adult Health | DX: Z47.89 Encounter for other orthopedic aftercare (principal); M79.642 Pain in left hand | CPT/HCPCS: 99024 ==

== ENCOUNTER 2024-10-27 03:52 | Outpatient (CLI) | payer MEDICARE, SELFPAY ==
[2024-10-27 11:03] LABS: COMMENT (LAB VIEW ONLY) 136.14 mg/dL; Microalb ug/mg Crea 5.7 ug/mg Cr
[2024-10-27 11:15] LABS: Anion Gap 6.6 mmol/L (3-11); BUN 15 mg/dL (7-18); CO2 29.4 mmol/L (21.0-32.0); CREATININE 1.2 mg/dL (0.55-1.02); Calcium 9.5 mg/dL (8.5-10.1); Calculated LDL 67 mg/dL (<100); Chloride 105 mmol/L (98-107); Cholesterol 180 mg/dL (<200); Estimated GFR 46.05 (mL/min/1.73m2); Glucose 257 mg/dL (74-106); HDL Cholesterol 95 mg/dL (40-60); Potassium 4.3 mmol/L (3.5-5.1); Sodium 141 mmol/L (136-145); TSH (W/Ref FT4) 1.94 uIU/mL (0.36-3.74); Triglyceride 90 mg/dL (<150)
== END 2024-10-27 03:53 | disposition home or self-care (01) ==
LOC: LBO 03:54
PROVIDERS: PCP Nurse Practitioner Adult Health; Referring Provider Nurse Practitioner Adult Health; Visit Provider Nurse Practitioner Adult Health
DX: I10 Essential (primary) hypertension (principal); E78.2 Mixed hyperlipidemia; E11.9 Type 2 diabetes mellitus without complications; E89.0 Postprocedural hypothyroidism; E66.09 Other obesity due to excess calories
CPT/HCPCS: 36415; 80048; 80061; 82043; 82570; 83013; 84443

== ENCOUNTER → 2025-08-31 14:40 | Outpatient (BNVA) | payer MEDICARE, SELFPAY | PROVIDERS: PCP Nurse Practitioner Adult Health; Referring Provider Nurse Practitioner Adult Health; Visit Provider Student in an Organized Health Care Education/Training Program | DX: M65.332 Trigger finger, left middle finger (principal) | CPT/HCPCS: 99214 ==

== ENCOUNTER 2025-09-30 06:24 | Day surgery (SDC) | payer MEDICARE, SELFPAY ==
[2025-09-30 06:38] VITALS: BP 135/65; PULSE 68; RESP 14; TEMP 36; O2SAT 97
--- NOTE | 2025-09-30 07:10 | W.PM.DSUDISC ---
Date of service: 09/30/25 Discharge Plan Disposition Patient Disposition: Home Condition: Good Discharge Details Reason For Visit: LMF Trigger Release Attending Provider: Rinku Gold Primary Care Provider: Veronica Nugent Home Meds and New Rx's Prescriptions: New ibuprofen 600 mg tablet 600 mg PO TID PRN (Reason: pain) Qty: 90 0RF Continued cholecalciferol (vitamin D3) 25 mcg (1,000 unit) tablet 25 mcg PO DAILY melatonin 5 mg tablet 30 mg PO HS (DME) Blood Glucose Test Strip See Rx Instructions .MEDSUPPLY Qty: 100 3RF Rx Instructions: To check daily blood glucose. No insulin. Dispense Reli On brand. Dx: E11.9 to maintain HbA1c less than 7%. (DME) lancets Misc See Rx Instructions .MEDSUPPLY Qty: 100 3RF Rx Instructions: To check daily blood glucose. No insulin. Dispense Reli On brand. Dx: E11.9 to maintain HbA1c less than 7%. pantoprazole 40 mg tablet,delayed release (DR/EC) 40 mg PO DAILY 90 Days Qty: 90 4RF Rx Instructions: Take one 40 mg tablet by mouth once daily as directed. rizatriptan [Maxalt] 10 mg tablet 10 mg PO DAILY PRN (Reason: migraine headache) Qty: 12 11RF promethazine 25 mg tablet 25 mg PO BID PRN (Reason: nausea and vomiting) Qty: 20 1RF Rx Instructions: Nausea; &/or nausea associated with vertigo semaglutide 2 mg/dose (8 mg/3 mL) pen injector 2 mg subcut QWEEK 28 Days Qty: 3 12RF Rx Instructions: Inject 2.0 mg subcutaneously once weekly as directed albuterol sulfate [Ventolin HFA] 90 mcg/actuation HFA aerosol inhaler 2 inh Inhalation QID PRN (Reason: bronchospasm) Qty: 1 2RF olmesartan 20 mg tablet See Rx Instructions .ROUTE .COMPLEX Qty: 90 3RF Dose Instruction: TAKE ONE TABLET BY MOUTH EVERY DAY Rx Instructions: TAKE ONE TABLET BY MOUTH EVERY DAY levothyroxine 100 mcg tablet 100 mcg PO DAILY Qty: 90 3RF metoprolol succinate 100 mg tablet extended release 24 hr See Rx Instructions .ROUTE .COMPLEX Qty: 90 3RF Dose Instruction: TAKE ONE TABLET BY MOUTH EVERY DAY Rx Instructions: TAKE ONE TABLET BY MOUTH EVERY DAY atorvastatin 40 mg tablet 40 mg PO DAILY Qty: 90 3RF escitalopram oxalate [Lexapro] 20 mg tablet 20 mg PO DAILY Qty: 90 3RF glimepiride 4 mg tablet 4 mg PO BID Qty: 180 3RF bupropion HCl 300 mg tablet extended release 24 hr See Rx Instructions .ROUTE .COMPLEX Qty: 90 3RF Dose Instruction: TAKE ONE TABLET BY MOUTH EVERY MORNING Rx Instructions: TAKE ONE TABLET BY MOUTH EVERY MORNING acetaminophen 500 mg tablet 1,000 mg PO Q8H PRN (Reason: pain) Qty: 90 3RF Discharge Instructions Stand Alone Forms: Alla Stover Finger Release, Nery Ayon (DSU), Portal Information Referrals: Rinku Gold MD [ [facility] STAFF PHYSICIAN, Orthopaedic Surgical] Activity:: Activity as Tolerated Remove Dressings/Wound Care:: 48 hours Shower/Bathe:: 48 hours Diet:: As Tolerated Discharge Orders Discharge Orders: Discharge Order (Routine); Ordered 09/30/25 Ordered By: Mynor King DS: Diagnosis Discharge Diagnosis (1) Trigger finger, left middle finger: Status: Acute
[2025-09-30] MEDS: Lidocaine 1% Multi-Dose W/EPI 1/100,000 50 ML VIAL (07:32)
[2025-09-30] MEDS: Sodium Bicarbonate 50 MEQ/50 ML VIAL (07:32)
[2025-09-30 07:38] VITALS: BP 122/83; PULSE 73; RESP 16; TEMP 36.2; O2SAT 99
--- NOTE | 2025-09-30 08:55 | ROE_ITS ---
Operative Note Operative Note PRE-OP DIAGNOSIS: Left Middle Finger Trigger Finger POST-OP DIAGNOSIS: same PROCEDURE: Trigger Finger Release - Left Middle Finger SURGEON: Rinku Gold ANESTHESIA TYPE: Local By Surgeon Refer to Anesthesia Record ESTIMATED BLOOD LOSS: 0 PATHOLOGY: none sent COMPLICATIONS: None Patient was transported to: same day Patient's condition: stable Indications: I have seen Alejandra in clinic for symptoms of a trigger finger. The catching, clicking, locking, and pain limited function. The diagnosis of trigger finger was evident. The symptoms had not responded to conservative measures. I discussed trigger finger release with the patient. I reviewed the risks of the procedure to include, but not limited to, bleeding, infection, pain, stiffness, incomplete release, damage to nerves or vessels, continued catching, recurrence. Despite these risks, the patient elected to proceed. Findings: There was a tightened A1 cande which was released. The flexor tendons were inspected and the patient was able to move the finger without any catching, clicking, or locking. Procedure Description: Alejandra was greeted in the preoperative holding area where the correct side was identified and marked. The consent was reviewed with the patient and signed. All questions were answered. She was taken back to the operating room. The patient was placed into the supine position on the operating room table with the left arm on an arm board. All bony prominences were well padded. No prophylactic antibiotics were administered since this was a clean, elective hand surgical case. The left arm was then prepped with Chloraprep and draped in a standard fashion with stockinette and extremity drape. A timeout to confirm correct identity, side and site, procedure, allergies, anesthesia, and medical concerns was performed. The surgical site was marked as a longitudinal incision directly over the A1 cande of the involved digit. This was confirmed with palpation during finger flexion. This area, overlying the metacarpal head, was then anesthetized with 1% Lidocaine. The patient tolerated this well and once the anesthetic had setup, the procedure began. A longitudinal incision was made through skin only, approximately 1cm. The deep tissues were dissected bluntly. Once the A1 cande and flexor tendons were identified the soft tissue including neurovascular structures were retracted medially and laterally. There were no crossing structures over the A1 cande. The proximal edge of the cande was identified and the cande was incised with tenotomy scissors. There was a release of the tendons once this was fully released. The patient was asked to move the finger into deep flexion and back to extension. There was no recreation of the pre- operative symptoms. The hand was then once more inspected for any A0 cande or area of possible constriction. The wound was then irrigated and the skin was closed with a 4-0 Nylon. This was dressed with gauze and a Conform dressing. The patient tolerated the procedure well and was returned to the Same Day Surgery area in a stable condition suffering no known complication. Date of Procedure: 09/30/25
== END 2025-09-30 08:06 | disposition home or self-care (01) ==
PROVIDERS: PCP Nurse Practitioner Adult Health; Visit Provider Student in an Organized Health Care Education/Training Program
PROC: (CPT 26055; principal; 2025-09-30 07:30)
DX: M65.352 Trigger finger, left little finger (principal)
CPT/HCPCS: 26055; J2004

== ENCOUNTER → 2025-10-09 11:10 | Outpatient (BNVA) | payer MEDICARE, SELFPAY | PROVIDERS: PCP Nurse Practitioner Adult Health; Referring Provider Nurse Practitioner Adult Health; Visit Provider Physician Assistant | DX: Z47.89 Encounter for other orthopedic aftercare (principal); M65.332 Trigger finger, left middle finger | CPT/HCPCS: 99024 ==